=== PATIENT | male | born 1955 | race Caucasian/White ===

== ENCOUNTER 2019-08-08 13:30 | Emergency (ER) | payer MEDICARE, SELFPAY ==
[2019-08-08 13:42] VITALS: BP 189/157; PULSE 101; RESP 18; TEMP 36.6; O2SAT 97; BMI 43.8
--- NOTE | 2019-08-08 14:33 | XRR_ITS ---
PROCEDURE INFORMATION: Exam: XR Chest, 1 View Exam date and time: 08/08/2019 2:53 PM Age: 64 years old Clinical indication: Cough; Prior surgery; Surgery type: Open heart TECHNIQUE: Imaging protocol: XR of the chest Views: 1 view. COMPARISON: CR Chest 1 [place] [id number] 01/09/2019 3:30 PM FINDINGS: Lungs: Unremarkable. No consolidation. Pleural space: Unremarkable. No pleural effusion. No pneumothorax. Heart/Mediastinum: Unremarkable. No cardiomegaly. Bones/joints: Metallic sternotomy wires are in place. No interval changes are seen compared to prior XR/XR chest 1V portable [id number] IMPRESSION: No acute findings. Metallic sternotomy wires in place
[2019-08-08 15:32] LABS: Basophils # 0.1 10^3/uL (0.0-0.1); Eosinophils # 0.2 10^3/uL (0.0-0.8); Eosinophils % 2.1 %; Hematocrit 41.4 % (42.0-52.0); Hemoglobin 13.9 g/dL (11.7-16.6); Lymphocytes # 2.4 10^3/uL (0.8-4.8); Lymphocytes % 21.9 %; Mean Corpuscular HGB Conc 33.6 g/dL (30.0-36.0); Mean Corpuscular Hemoglobin 29.8 pg (28.0-34.0); Mean Corpuscular Volume 88.8 fL (80-94); Mean Platelet Volume 9.8 fL (7.4-10.4); Monocytes # 0.5 10^3/uL (0.2-0.9); Neutrophils # 7.5 10^3/uL (1.8-7.7); Neutrophils % 69.5 %; Nucleated Red Blood Cells % 0 %; Platelet Count 237 10^3/cmm (130-400); Red Blood Count 4.66 10^6/uL (4.1-5.3); Red Cell Distribution Width 14.1 % (12.1-15.1); White Blood Count 10.8 10^3/uL (4.0-10.0)
[2019-08-08 17:45] VITALS: BP 198/103; BP 198/110; PULSE 122; RESP 18; TEMP 36.7; O2SAT 99
--- NOTE | 2019-08-08 17:45 | W.ED.GENADLT ---
HPI - General Adult General: Chief complaint: General Medical Stated complaint: congested Time Seen by Provider: 08/08/19 17:43 History of Present Illness: HPI narrative: Patient is a 64-year-old male comes into the ED with nasal congestion, sinus pain and not feeling well. Patient states that the symptoms started last Tuesday. He denies chest pain, shortness of breath, cough, ear pain, sore throat, abdominal pain, nausea, vomiting, dysuria, hematuria, bladder or bowel symptoms. Patient also states that he's been out of his blood pressure medications for 4 days. He would like to get some of his blood pressure medications refilled today. Review of Systems General: Reports: 10 or more systems reviewed and unremarkable except in HPI and below PFSH ED PFSH: Statuses (acute, chronic, etc) shown below reflect problem list status as previously entered and may not be historically accurate Social History Smoking and tobacco status: never smoked Physical Exam Const: COMMON NORMALS: oriented x3 HENMT: COMMON NORMALS: normocephalic, TM's normal bilaterally and external nose normal HEAD & SCALP: normocephalic FACE & SINUS: sinus tenderness maxillary (Left and right side-left side was more tender) NOSE: external nose normal, mucous membranes and turbinates abnormal erythematous and nasal discharge clear TYMPANIC MEMBRANE: TM's normal bilaterally MOUTH: oral and palatal mucosa normal THROAT: posterior oropharynx normal and uvula midline Neck/C-Spine: COMMON NORMALS: supple GENERAL: Yes normal visual inspection Resp: COMMON NORMALS: normal respiratory effort, no retractions, no use of accessory muscles and clear to auscultation bilaterally AUSCULTATION: clear to auscultation bilaterally Cardio: COMMON NORMALS: regular rate, regular rhythm, S1 normal heart sound, S2 normal heart sound, no gallops, no clicks, no murmurs and peripheral pulses 2+ throughout RATE: regular rate RHYTHM: regular rhythm HEART SOUNDS: S1 normal and S2 normal PERIPHERAL PULSES: pulses 2+ throughout GI: COMMON NORMALS: normal to inspection, nondistended, normoactive bowel sounds, soft to palpation, non-tender and no masses PALPATION: Yes soft : COMMON NORMALS: Yes no CVA tenderness BLADDER/KIDNEY EXAM: Yes no CVA tenderness Back/Pelvis: COMMON NORMALS: no CVA tenderness Extremity: COMMON NORMALS: normal to inspection Neuro: COMMON NORMALS: oriented x3 and moves all extremities Skin: COMMON NORMALS: no rashes or lesions noted GENERAL SKIN EXAM: no rashes or lesions noted Course Vital Signs: Vital signs: Vital Signs Temperature 98.2 F 08/08/19 18:59 Pulse Rate 78 08/08/19 18:59 Respiratory Rate 14 08/08/19 18:59 Blood Pressure 183/132 08/08/19 18:59 Pulse Oximetry 98 08/08/19 18:59 [facility] - General Adult Lab Data: Attestation: I reviewed the patient's lab results. Labs: Lab Results 08/08/19 Range/Units 15:13 WBC 10.8 H (4.0-10.0) 10^3/ uL RBC 4.66 (4.1-5.3) 10^6/u L Hgb 13.9 (11.7-16.6) g/dL Hct 41.4 L (42.0-52.0) % MCV 88.8 (80-94) fL MCH 29.8 (28.0-34.0) pg MCHC 33.6 (30.0-36.0) g/dL RDW 14.1 (12.1-15.1) % Plt Count 237 (130-400) 10^3/c mm MPV 9.8 (7.4-10.4) fL Neut % (Auto) 69.5 % Lymph % (Auto) 21.9 % [place] % (Auto) 5.0 % Eos % (Auto) 2.1 % Baso % (Auto) 1.0 % Neut # (Auto) 7.5 (1.8-7.7) 10^3/u L Lymph # (Auto) 2.4 (0.8-4.8) 10^3/u L [place] # (Auto) 0.5 (0.2-0.9) 10^3/u L Eos # (Auto) 0.2 (0.0-0.8) 10^3/u L Baso # (Auto) 0.1 (0.0-0.1) 10^3/u L Nucleated RBC % (a uto) 0 % Nucleated RBCs # 0.0 /100WBC Imaging Data^: CXR: Attestation: I personally reviewed and interpreted this imaging study as follows: Radiologist's impression: [address] [place] [address] XRay Report Signed Patient: Mandy Davis Unit #: [id number] : 1955 Age/Sex: 64 / M ADM Date: 08/08/19 Loc: ER Room/Bed: Attending Dr: Ordering Provider/Ordering MD: Artie Campa DO Date of Service: 08/08/19 Procedure(s): XR chest 1V portable [id number] Accession Number(s): [id number] Report Number: [id number] PROCEDURE INFORMATION: Exam: XR Chest, 1 View Exam date and time: 08/08/2019 2:53 PM Age: 64 years old Clinical indication: Cough; Prior surgery; Surgery type: Open heart TECHNIQUE: Imaging protocol: XR of the chest Views: 1 view. COMPARISON: CR Chest 1 [place] [id number] 01/09/2019 3:30 PM FINDINGS: Lungs: Unremarkable. No consolidation. Pleural space: Unremarkable. No pleural effusion. No pneumothorax. Heart/Mediastinum: Unremarkable. No cardiomegaly. Bones/joints: Metallic sternotomy wires are in place. No interval changes are seen compared to prior XR/XR chest 1V portable [id number] IMPRESSION: No acute findings. Metallic sternotomy wires in place Dictated By: Vicente Wang Signed By: Vicente Wang Signed Date/Time: 08/08/191517 DD/ 16 Discharge Plan Discharge Patient Disposition: Home, Self-Care Clinical Impression: Medication refill Acute infection of nasal sinus Qualifiers: Sinusitis location: maxillary Recurrence: non-recurrent Qualified Code(s): J01.00 - Acute maxillary sinusitis, unspecified Condition: Stable Prescriptions: New lisinopril-hydrochlorothiazide 20-12.5 mg tablet 1 tab PO DAILY Qty: 20 RF: 0 amoxicillin 500 mg capsule 500 mg PO BID 10 Days Qty: 20 RF: 0 prednisone 20 mg tablet 20 mg PO TID 5 Days Qty: 15 RF: 0 metoprolol tartrate 50 mg tablet 50 mg PO DAILY Qty: 20 RF: 0 Discharge Orders: Discharge Order (Routine); Ordered 08/08/19 Ordered By: Joey Copeland Referrals: Matthew Ray NP [Primary Care Provider] - Ronak Foote DO [Family Provider] - Discharge Diet: Regular Discharge Activity: Resume usual activity Activity Restrictions/Additional Instructions: Follow-up with your primary care doctor in the next 7 days for reevaluation and to get refills on your medications. Will send you home with a prescription for your blood pressure medication. Take full course of antibiotics and steroids as prescribed. Take Tylenol or ibuprofen as needed for fever control. Drink plenty of fluids. Continue using Over the counter decongestants. 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
[2019-08-08 18:59] VITALS: BP 183/132; PULSE 78; RESP 14; TEMP 36.8; O2SAT 98
[2019-08-08] MEDS: hydroCHLOROthiazide 25 mg Tablet 12.5 MG PO (18:59)
[2019-08-08] MEDS: lisinopril 20 mg Tablet PO (18:59)
== END 2019-08-08 19:01 | disposition home or self-care (01) ==
PROVIDERS: Family Medicine; Emergency Provider Physician Assistant; Family Provider Internal Medicine; PCP Nurse Practitioner Family
DX: J01.00 Acute maxillary sinusitis, unspecified (principal); Z76.0 Encounter for issue of repeat prescription
CPT/HCPCS: 36415; 71045; 85025; 96372; 99281; J2930

== ENCOUNTER 2019-08-12 13:09 | Emergency (ER) | payer MEDICARE, SELFPAY ==
[2019-08-12 13:42] VITALS: BP 190/104; PULSE 90; RESP 18; O2SAT 97; BMI 44.6
--- NOTE | 2019-08-12 13:45 | W.ED.URI ---
HPI - URI/Sore Throat General: Chief Complaint: Upper Respiratory Infection Stated Complaint: SINUS PAIN Time Seen by Provider: 08/12/19 13:45 Source: patient Mode of arrival: ambulatory Limitations: no limitations History of Present Illness: HPI Narrative: Patient is a 64-year-old male who presents to ED today with complaints of head pressure, sinus pressure/pain, nasal discharge/congestion, and a cough; symptoms have been present over the past few days; patient was initially seen here and placed on amoxicillin; states he has not been taking his medication as directed (reports not remembering to take most of his medications daily); patient denies running fevers; patient wonders if there might be fluid behind his ars as they also feel full and he is having a little dizziness; patient reports he has a history of hydrocephalus and is concerned maybe this could be causing the dizziness as well; patient ambulated into the ED without difficulty MD elicited complaint: cough, nasal congestion and sinus pain Consistency: constant Description of mucous: clear and yellow Able to tolerate fluids by mouth: Yes Exacerbating factors: nothing Relieving factors: nothing Associated symptoms: Reports cough, ear or mastoid pain ( pressure ), headache(s) ( pressure ), nasal congestion and sinus pain; Deny chills, chest pain, fever(s), nausea or vomiting Treatments prior to arrival: antibiotics Review of Systems Const: Denies: fever, chills, body aches or fatigue Eyes: Denies: change in vision, blurry vision, photophobia, eye discomfort or eye discharge ENMT: Reports: ear pain ( pressure ), nasal discharge, nasal congestion, post nasal drip and facial/sinus pain; Denies: enlarged tonsils, painful swallowing, swelling of lips/tongue, oral sores/lesions, ear discharge or tinnitus Card: Denies: chest pain, palpitations, irregular heart rhythm, edema, syncope or pre-syncope Resp: Reports: productive cough and chest congestion; Denies: shortness of breath, non-productive cough, wheezing, stridor, pain on inspiration or coughing up blood GI: Denies: nausea or vomiting Musc: Denies: neck pain or back pain Skin/Breast: Denies: rash Neuro: Reports: headache ( pressure ) and dizziness; Denies: numbness in extremities, weakness in extremities, changes in sensation, lack of coordination, difficulty walking or frequent falls All/Imm: Denies: facial swelling or seasonal allergies PFSH ED PFSH: Statuses (acute, chronic, etc) shown below reflect problem list status as previously entered and may not be historically accurate Social History Smoking and tobacco status: never smoked Physical Exam Const: COMMON NORMALS: no apparent distress, oriented x3, alert and well nourished NUTRITIONAL APPEARANCE: obese ORIENTATION/CONSCIOUSNESS: Yes oriented to person, Yes oriented to place and Yes oriented to time HENMT: COMMON NORMALS: normocephalic, head/scalp atraumatic, hearing grossly normal bilaterally, external ears normal, EAC's normal, external nose normal, nasal mucous membranes and turbinates normal, moist oral mucous membranes and oropharynx normal HEAD & SCALP: normocephalic and atraumatic FACE & SINUS: sinus tenderness frontal and maxillary NOSE: external nose normal and nasal mucous membranes and turbinates normal EXTERNAL EAR: Yes external ears normal EXTERNAL AUDITORY CANAL: EAC's normal TYMPANIC MEMBRANE: TM abnormal (serous otitis-R) MOUTH: oral and palatal mucosa normal THROAT: posterior oropharynx normal, tonsils normal and uvula midline Eye: COMMON NORMALS: PERRL, EOMs intact bilaterally and conjunctivae normal CONJUNCTIVA: Yes conjunctivae normal PUPIL: Yes PERRL Neck/C-Spine: COMMON NORMALS: full ROM, no lymphadenopathy and no meningeal signs Resp: COMMON NORMALS: normal respiratory effort and clear to auscultation bilaterally AUSCULTATION: clear to auscultation bilaterally Cardio: COMMON NORMALS: regular rate and regular rhythm RATE: regular rate RHYTHM: regular rhythm Neuro: NAT COMA SCALE: document GCS findings Nat coma scale eye opening: Spontaneous Section coma scale verbal response: Orientated Nat coma scale motor response: Obey commands Section coma scale total score: 15 COMMON NORMALS: oriented x3, CN's II-XII intact bilaterally, moves all extremities, no focal motor deficits and no sensory deficits noted SENSORIUM/ORIENTATION: Yes alert, Yes oriented to person, Yes oriented to place and Yes oriented to time MENINGEAL SIGNS: Yes no meningeal signs SPEECH: speech normal GAIT: Yes normal gait Course Vital Signs: Vital signs: Vital Signs Pulse Rate 79 08/12/19 16:12 Respiratory Rate 18 08/12/19 16:12 Blood Pressure 189/114 08/12/19 16:12 Pulse Oximetry 96 08/12/19 16:12 MDM - URI/Sore Throat MDM Narrative: Medical decision making narrative: Patient's history is most consistent with a sinusitis/bronchitis/URI. Recommend he take the amoxicillin given to him at last visit as directed. CXR today again clear. There are no acute changes on his head CT. Recommend he contact primary care physician to schedule follow-up appointment. Imaging Data^: CXR: Radiologist's impression: [place] [address] XRay Report Signed Patient: Mandy Davis Unit #: [id number] : 1955 Age/Sex: 64 / M ADM Date: 08/12/19 Loc: ER Room/Bed: Attending Dr: Ordering Provider/Ordering MD: Cris Norris Date of Service: 08/12/19 Procedure(s): XR chest 1V [id number] Accession Number(s): [id number] Report Number: [id number] PROCEDURE INFORMATION: Exam: XR Chest, 1 View Exam date and time: 08/12/2019 2:22 PM Age: 64 years old Clinical indication: Cough; Prior surgery; Surgery date: 6+ months; Surgery type: Open heart TECHNIQUE: Imaging protocol: XR of the chest Views: 1 view. COMPARISON: CR XR chest 1V portable [id number] 08/08/2019 2:40 PM FINDINGS: Lungs: The lungs are well expanded with no focal consolidation. Pulmonary vascular congestion without overt edema. Pleural space: Unremarkable. No evidence of pleural effusion or pneumothorax. Heart/Mediastinum: Cardiac silhouette remains mild to moderately enlarged. Bones/joints: Median sternotomy wires. XR/XR chest 1V [id number] IMPRESSION: No acute findings. Dictated By: Usman Worthy MD Signed By: Usman Worthy MD Signed Date/Time: 08/12/19 1511 DD/ 1510 CT Head: Radiologist's impression: [address] [address] [address] Scan Report Signed Patient: Mandy Davis Unit #: [id number] : 1955 Age/Sex: 64 / M ADM Date: 08/12/19 Loc: ER Room/Bed: Attending Dr: Ordering Provider/Ordering MD: Cris Norris Date of Service: 08/12/19 Procedure(s): CT head wo con* [id number] Accession Number(s): [id number] Report Number: [id number] PROCEDURE INFORMATION: Exam: CT Head Without Contrast Exam date and time: 08/12/2019 2:03 PM Age: 64 years old Clinical indication: Dizziness; Additional info: Dizzy; HX of hydrocephalus TECHNIQUE: Imaging protocol: Computed tomography of the head without contrast. Total DLP: 833.53 mGy-cm Radiation optimization: All CT scans at this facility use at least one of these dose optimization techniques: automated exposure control; mA and/or kV adjustment per patient size (includes targeted exams where dose is matched to clinical indication); or iterative reconstruction. COMPARISON: CT head wo con* [id number] 09/08/2016 and August 08, 2016 FINDINGS: Brain: No intracranial hemorrhage. Atrophy and mild decreased attenuation of the periventricular white matter is again noted, with additional bilateral scattered subcentimeter chronic basal ganglia lacunar infarcts. Normal odell-white differentiation with no evidence of edema or territorial infarct. Unchanged appearance of asymmetric increased extra-axial CSF density fluid along the right frontal and parietal lobes laterally, as well as along the between the left frontal lobe in the interhemispheric fissure, again with minimal right to left midline shift of up to 4 mm. Also unchanged is similar thin CSF density extra-axial fluid in the right posterior fossa. There is again mild ventriculomegaly in the setting of atrophy without evidence of acute hydrocephalus. Ventricles: See Brain Finding. Bones/joints: No acute fracture. Sinuses: Visualized sinuses are unremarkable. No fluid levels. Mastoid air cells: Visualized mastoid air cells are well aerated. Soft tissues: Unremarkable. CT/CT head wo con* [id number] IMPRESSION: 1. No acute findings. 2. Asymmetric CSF density extra-axial fluid again noted between the right calvarium and frontoparietal lobes, between the left frontal lobe and interhemispheric fissure, and right posterior fossa, without significant change since August 08, 2016. Again this may be secondary to chronic subdural hygromas or asymmetric atrophy. 3. Chronic microvascular ischemic changes. Radiation Dose CTDIVOL = (mGy): DLP = 833.53 (mGy-cm) Dictated By: Usman Worthy MD Signed By: Usman Worthy MD Signed Date/Time: 08/12/19 1521 DD/ 1519 Discharge Plan Discharge Patient Disposition: Home, Self-Care Clinical Impression: Acute infection of nasal sinus Qualifiers: Sinusitis location: maxillary Recurrence: non-recurrent Qualified Code(s): J01.00 - Acute maxillary sinusitis, unspecified Condition: Stable Prescriptions: No Action amoxicillin 500 mg capsule 500 mg PO BID 10 Days Qty: 20 RF: 0 metoprolol tartrate 50 mg tablet 50 mg PO DAILY Qty: 20 RF: 0 atorvastatin 40 mg Tablet 40 mg PO DAILY RF: 0 sertraline 100 mg Tablet 100 mg PO BID RF: 0 Plavix 75 mg Tablet 75 mg PO DAILY RF: 0 metformin 1,000 mg Tablet 1,000 mg PO BID RF: 0 warfarin 5 mg Tablet 5 mg PO DAILY RF: 0 levothyroxine 150 mcg Capsule 150 mcg PO DAILY RF: 0 Combivent Respimat 20-100 mcg/actuation Mist 2 puff INHALATION QID RF: 0 lisinopril-hydrochlorothiazide 20-12.5 mg tablet 2 tab PO DAILY RF: 0 Discharge Orders: Discharge Order (Routine); Ordered 08/12/19 Ordered By: Cris Norris Referrals: Matthew Ray NP [Primary Care Provider] - Ronak Foote DO [Family Provider] - Activity Restrictions/Additional Instructions: Continue antibiotics as directed. Follow up with primary care for continued symptoms. 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
--- NOTE | 2019-08-12 13:59 | CTR_ITS ---
PROCEDURE INFORMATION: Exam: CT Head Without Contrast Exam date and time: 08/12/2019 2:03 PM Age: 64 years old Clinical indication: Dizziness; Additional info: Dizzy; HX of hydrocephalus TECHNIQUE: Imaging protocol: Computed tomography of the head without contrast. Total DLP: 833.53 mGy-cm Radiation optimization: All CT scans at this facility use at least one of these dose optimization techniques: automated exposure control; mA and/or kV adjustment per patient size (includes targeted exams where dose is matched to clinical indication); or iterative reconstruction. COMPARISON: CT head wo con* [id number] 09/08/2016 and August 08, 2016 FINDINGS: Brain: No intracranial hemorrhage. Atrophy and mild decreased attenuation of the periventricular white matter is again noted, with additional bilateral scattered subcentimeter chronic basal ganglia lacunar infarcts. Normal odell-white differentiation with no evidence of edema or territorial infarct. Unchanged appearance of asymmetric increased extra-axial CSF density fluid along the right frontal and parietal lobes laterally, as well as along the between the left frontal lobe in the interhemispheric fissure, again with minimal right to left midline shift of up to 4 mm. Also unchanged is similar thin CSF density extra-axial fluid in the right posterior fossa. There is again mild ventriculomegaly in the setting of atrophy without evidence of acute hydrocephalus. Ventricles: See Brain Finding. Bones/joints: No acute fracture. Sinuses: Visualized sinuses are unremarkable. No fluid levels. Mastoid air cells: Visualized mastoid air cells are well aerated. Soft tissues: Unremarkable. CT/CT head wo con* [id number] IMPRESSION: 1. No acute findings. 2. Asymmetric CSF density extra-axial fluid again noted between the right calvarium and frontoparietal lobes, between the left frontal lobe and interhemispheric fissure, and right posterior fossa, without significant change since August 08, 2016. Again this may be secondary to chronic subdural hygromas or asymmetric atrophy. 3. Chronic microvascular ischemic changes. Radiation Dose CTDIVOL = (mGy): DLP = 833.53 (mGy-cm)
--- NOTE | 2019-08-12 13:59 | XRR_ITS ---
PROCEDURE INFORMATION: Exam: XR Chest, 1 View Exam date and time: 08/12/2019 2:22 PM Age: 64 years old Clinical indication: Cough; Prior surgery; Surgery date: 6+ months; Surgery type: Open heart TECHNIQUE: Imaging protocol: XR of the chest Views: 1 view. COMPARISON: CR XR chest 1V portable [id number] 08/08/2019 2:40 PM FINDINGS: Lungs: The lungs are well expanded with no focal consolidation. Pulmonary vascular congestion without overt edema. Pleural space: Unremarkable. No evidence of pleural effusion or pneumothorax. Heart/Mediastinum: Cardiac silhouette remains mild to moderately enlarged. Bones/joints: Median sternotomy wires. XR/XR chest 1V [id number] IMPRESSION: No acute findings.
[2019-08-12 16:12] VITALS: BP 189/114; PULSE 79; RESP 18; O2SAT 96
== END 2019-08-12 16:03 | disposition home or self-care (01) ==
PROVIDERS: Emergency Provider Physician Assistant; Family Provider Internal Medicine; PCP Nurse Practitioner Family
DX: J01.00 Acute maxillary sinusitis, unspecified (principal); Z79.01 Long term (current) use of anticoagulants; Z79.02 Long term (current) use of antithrombotics/antiplatelets; Z79.84 Long term (current) use of oral hypoglycemic drugs
CPT/HCPCS: 70450; 71045; 99281

== ENCOUNTER 2019-09-09 14:03 | Inpatient (IN) | payer MEDICARE, SELFPAY ==
[2019-09-09] VITALS (68 sets, daily range): BP systolic 108–183; BP diastolic 72–129; PULSE 87–141; RESP 12–41; TEMP 36.5–37.6; O2SAT 94–100; BMI 43.8
--- NOTE | 2019-09-09 14:25 | ED_ITS ---
Entered by Maryam Salcedo, acting as scribe for Rex Nj MD, [facility] [place] - General Adult General: Chief complaint: General Medical Stated complaint: FREQUENT FALLS Time Seen by Provider: 09/09/19 14:23 Source: patient Mode of arrival: EMS Limitations: no limitations History of Present Illness: HPI narrative: 64 yo Male presents to ED with complaint of frequent falls and feeling weird. Pt states that he has been feeling really weird. Pt states that he doesn't know when it started. Pt states that he felt dizzy and light headed a few times. Pt denies chest pain. Pt states that he has fallen twice today. Pt states that he doesn't know why he fell. Pt states that he felt really light headed and then it goes away. Pt denies head injury or loss of consciousness. Pt states that he is on blood thinners. Pt states that he has a-fib. Pt states he does not feel like his heart is racing. Pt states that he does have COPD but doesn't smoke and is not on oxygen at home. Pt has a small skin tear on his right forearm. complaint: light headed, frequent falls Onset (ago): hour(s) Pain Consistency: intermittent Relieving factors: none Exacerbating factors: none Associated symptoms: Deny chest pain, dyspnea, headache(s), nausea, rash, palpitations or vomiting Review of Systems General: Reports: 10 or more systems reviewed and unremarkable except in HPI and below Const: Denies: fever, chills or body aches Eyes: Denies: change in vision or blurry vision ENMT: Denies: throat pain, enlarged tonsils, painful swallowing, hoarseness, mouth pain or swelling of lips/tongue Card: Reports: lightheadedness; Denies: chest pain, palpitations, irregular heart rhythm, edema or swelling of feet/ankles Resp: Denies: shortness of breath, productive cough or non-productive cough GI: Denies: abdominal pain, nausea or vomiting : Denies: flank pain, painful urination, urinary frequency, urinary urgency or urinary hesitancy Musc: Denies: neck pain, back pain or extremity swelling Skin/Breast: Denies: rash, itching or redness Neuro: Denies: headache, numbness in extremities or weakness in extremities Endo: Denies: excessive urination, excessive thirst or tired all the time PFSH ED PFSH: Social History Smoking and tobacco status: never smoked Physical Exam Const: COMMON NORMALS: no apparent distress, average body habitus, oriented x3, no limitations, healthy appearing, alert and well nourished HENMT: COMMON NORMALS: normocephalic, head/scalp atraumatic and moist oral mucous membranes HEAD & SCALP: normocephalic and atraumatic Eye: COMMON NORMALS: PERRL, EOMs intact bilaterally, conjunctivae normal and no scleral icterus CONJUNCTIVA: Yes conjunctivae normal PUPIL: Yes PERRL Neck/C-Spine: COMMON NORMALS: full ROM, supple, no meningeal signs, no JVD and no carotid bruits Chest: COMMONS NORMALS: inspection of chest normal and palpation of chest normal Resp: COMMON NORMALS: normal respiratory effort, no retractions, no use of accessory muscles and percussion normal AUSCULTATION: rales bilateral 1/[address] up PERCUSSION: percussion normal Cardio: COMMON NORMALS: no JVD, regular rate, regular rhythm, S1 normal heart sound, S2 normal heart sound, no gallops, no clicks, no murmurs, no rub and peripheral pulses 2+ throughout RATE: regular rate and tachycardic RHYTHM: regular rhythm and abnormal rhythm irregularly irregular HEART SOUNDS: S1 normal and S2 normal PERIPHERAL PULSES: pulses 2+ throughout GI: COMMON NORMALS: normal to inspection, nondistended, normoactive bowel sounds, soft to palpation, non-tender, no hepatosplenomegaly, no masses and no bruits PALPATION: Yes soft and Yes no hepatosplenomegaly : COMMON NORMALS: Yes no CVA tenderness BLADDER/KIDNEY EXAM: Yes no CVA tenderness Back/Pelvis: COMMON NORMALS: no CVA tenderness Extremity: COMMON NORMALS: normal to inspection, full ROM, normal capillary refill, no calf tenderness and no pedal edema Neuro: COMMON NORMALS: oriented x3 SENSORIUM/ORIENTATION: Yes alert MENINGEAL SIGNS: Yes no meningeal signs Skin: COMMON NORMALS: no rashes or lesions noted, no wounds, skin turgor normal, no jaundice, no petechiae and no mottling GENERAL SKIN EXAM: no r ashes or lesions noted and turgor normal Course Consultations: Consultation #1: Dr. St, hospitalist. He kindly accepted patient to his service. Time: 18:15 Vital Signs: Vital signs: Vital Signs Temperature 99.6 F 09/09/19 19:36 Pulse Rate 112 H 09/09/19 20:41 Respiratory Rate 18 09/09/19 20:00 Blood Pressure 138/83 09/09/19 20:07 Pulse Oximetry 99 09/09/19 20:41 MDM - General Adult MDM Narrative: Medical decision making narrative: Patient with clinical features of atrial fibrillation with rapid ventricular reading. Patient has a prior history of A. fib, he is on warfarin but is subtherapeutic today. He presented because of falls and dizziness. Evaluation showed A. fib requiring multiple doses of Cardizem and eventually a Cardizem drip. He is admitted to the cardiac stepdown unit for further evaluation and managem ent Differential Diagnosis: Differential Diagnosis: Posterior circulation CVA, A. fib with RVR, other neurologic symptoms, ACS. Medical Records: Attestation: I reviewed the patient's medical records. Lab Data: Attestation: I reviewed the patient's lab results. Labs: Lab Results 09/09/19 09/09/19 09/09/19 Range/Units 14:56 14:56 14:56 WBC 10.8 H (4.0-10.0) 10^3/ uL RBC 4.01 L (4.1-5.3) 10^6/u L Hgb 11.5 L (11.7-16.6) g/dL Hct 34.4 L (42.0-52.0) % MCV 85.8 (80-94) fL MCH 28.7 (28.0-34.0) pg MCHC 33.4 (30.0-36.0) g/dL RDW 13.1 (12.1-15.1) % Plt Count 302 (130-400) 10^3/c mm MPV 9.6 (7.4-10.4) fL Neut % (Auto) 82.8 % Lymph % (Auto) 6.1 % [place] % (Auto) 9.3 % Eos % (Auto) 0.3 % Baso % (Auto) 0.8 % Neut # (Auto) 8.9 H (1.8-7.7) 10^3/u L Lymph # (Auto) 0.7 L (0.8-4.8) 10^3/u L [place] # (Auto) 1.0 H (0.2-0.9) 10^3/u L Eos # (Auto) 0.0 (0.0-0.8) 10^3/u L Baso # (Auto) 0.1 (0.0-0.1) 10^3/u L Nucleated RBC % (a uto) 0 % Nucleated RBCs # 0.0 /100WBC PT 15.90 H (10.5-13.3) SECO NDS INR 1.23 H (0.8-1.2) Sodium 130 L (136-145) mmol/L Potassium 3.6 (3.5-5.1) mmol/L Chloride 90 L (98-107) mmol/L Carbon Dioxide 23 (22-29) mmol/L Anion Gap 20.6 H (5-19) BUN 8 (8-23) mg/dL Creatinine 1.1 (0.7-1.2) mg/dL GFR Calculation 67.6 L (90-130) mL/min Glucose 270 H (65-115) mg/dL Calcium 9.2 (8.5-10.5) mg/dL Total Bilirubin 0.8 (0.15-1.2) mg/dL AST 31 (0-40) U/L ALT 16 (0-41) U/L Alkaline Phosphata se 148 H (40-130) IU/L Troponin T Baselin e (0-15) ng/mL Troponin T 120 Min [place] (0-15) ng/mL Delta Troponin T (0-10) ABS# NT-Pro-B Natriuret Pep 3814 H (0-125) pg/mL Total Protein 7.5 (6.6-8.7) g/dL Albumin 4.2 (3.5-5.2) g/dL Globulin 3.3 (1.3-4.6) g/dL Lipase 10 L (13-60) U/L 09/09/19 09/09/19 Range/Units 14:56 16:54 WBC (4.0-10.0) 10^3/ uL RBC (4.1-5.3) 10^6/u L Hgb (11.7-16.6) g/dL Hct (42.0-52.0) % MCV (80-94) fL MCH (28.0-34.0) pg MCHC (30.0-36.0) g/dL RDW (12.1-15.1) % Plt Count (130-400) 10^3/c mm MPV (7.4-10.4) fL Neut % (Auto) % Lymph % (Auto) % [place] % (Auto) % Eos % (Auto) % Baso % (Auto) % Neut # (Auto) (1.8-7.7) 10^3/u L Lymph # (Auto) (0.8-4.8) 10^3/u L [place] # (Auto) (0.2-0.9) 10^3/u L Eos # (Auto) (0.0-0.8) 10^3/u L Baso # (Auto) (0.0-0.1) 10^3/u L Nucleated RBC % (a uto) % Nucleated RBCs # /100WBC PT (10.5-13.3) SECO NDS INR (0.8-1.2) Sodium (136-145) mmol/L Potassium (3.5-5.1) mmol/L Chloride (98-107) mmol/L Carbon Dioxide (22-29) mmol/L Anion Gap (5-19) BUN (8-23) mg/dL Creatinine (0.7-1.2) mg/dL GFR Calculation (90-130) mL/min Glucose (65-115) mg/dL Calcium (8.5-10.5) mg/dL Total Bilirubin (0.15-1.2) mg/dL AST (0-40) U/L ALT (0-41) U/L Alkaline Phosphata se (40-130) IU/L Troponin T Baselin e 47 H (0-15) ng/mL Troponin T 120 Min [place] 49.07 H (0-15) ng/mL Delta Troponin T 2.07 (0-10) ABS# NT-Pro-B Natriuret Pep (0-125) pg/mL Total Protein (6.6-8.7) g/dL Albumin (3.5-5.2) g/dL Globulin (1.3-4.6) g/dL Lipase (13-60) U/L EKG Data^: EKG 1: Attestation: I personally reviewed and interpreted this EKG as follows: EKG interpretation date: 09/09/19 EKG interpretation time: 14:39 Prior EKG tracings: not available for review Interpretation: Atrial fibrillation with rapid ventricular rate. Heart rate 141 bpm Left axis deviation. Q waves in 1 and aVL Computer generated interpretation: Head CT 09/09/19 18:16 IMPRESSION: 1. Asymmetric extra-axial CSF density fluid along the right frontal parietal lobes, left side of the interhemispheric fissure, and right posterior fossa are unchanged from the prior exam. Differential includes subdural hygromas versus asymmetric atrophy. 2. There are senescent changes of the brain as described above. No evidence for large acute ischemic infarction or acute intracranial injury. Radiation Dose CTDIVOL = (mGy): DLP = 1516.1 (mGy-cm) EKG 2: Attestation: I personally reviewed and interpreted this EKG as follows: EKG interpretation date: 09/09/19 EKG interpretation time: 16:16 Prior EKG tracings: available for review Interpretation: Other than heart rate of 108 now unchanged from earlier Computer generated interpretation: Head CT 09/09/19 18:16 IMPRESSION: 1. Asymmetric extra-axial CSF density fluid along the right frontal parietal lobes, left side of the interhemispheric fissure, and right posterior fossa are unchanged from the prior exam. Differential includes subdural hygromas versus asymmetric atrophy. 2. There are senescent changes of the brain as described above. No evidence for large acute ischemic infarction or acute intracranial injury. Radiation Dose CTDIVOL = (mGy): DLP = 1516.1 (mGy-cm) Discharge Plan Discharge Patient Disposition: Admitted As Inpatient Admit Provider: Aguila [address] Clinical Impression: Atrial fibrillation with RVR, Dizziness, Repeated falls Condition: Stable Interventions: ED Discharge Assessment Last Done: 09/09/19 19:21 Discharge Date/Time: 09/09/19 19:22 Coding Level of Care Code ED Press Clipper for Chg Fwd Exam Comprehensive The documentation recorded by the Matias harrington Carmen, accurately reflects the service I personally performed and the decisions made by me, Rex Nj MD, [facility] [place] Sep 09, 2019 14:03
--- NOTE | 2019-09-09 14:38 | ECG_ITS ---
Measurements Intervals [place] Rate: 141 P: [place]: 0 QRS: -43 QRSD: 120 T: 87 QT: 328 QTc: 503 ATRIAL FIBRILLATION WITH RAPID VENTRICULAR RESPONSE LEFT AXIS DEVIATION [QRS AXIS < -30] POSSIBLE LATERAL MYOCARDIAL INFARCTION , OF INDETERMINATE AGE Compared to ECG 09/04/2017 04:20:19 Myocardial infarct finding now present Atrial flutter no longer present Aberrant conduction of supraventricular beat(s) no longer present Incomplete right bundle-branch block no longer present T-wave abnormality no longer present Electronically Signed On 09-10-2019 15:34:15 METER READER INSPECTOR by Rubia Hull M.D. [id number]
[2019-09-09 15:08] LABS: Basophils # 0.1 10^3/uL (0.0-0.1); Basophils % 0.8 %; Eosinophils % 0.3 %; Hematocrit 34.4 % (42.0-52.0); Hemoglobin 11.5 g/dL (11.7-16.6); Lymphocytes # 0.7 10^3/uL (0.8-4.8); Lymphocytes % 6.1 %; Mean Corpuscular HGB Conc 33.4 g/dL (30.0-36.0); Mean Corpuscular Hemoglobin 28.7 pg (28.0-34.0); Mean Corpuscular Volume 85.8 fL (80-94); Mean Platelet Volume 9.6 fL (7.4-10.4); Monocytes % 9.3 %; Neutrophils # 8.9 10^3/uL (1.8-7.7); Neutrophils % 82.8 %; Nucleated Red Blood Cells % 0 %; Platelet Count 302 10^3/cmm (130-400); Red Blood Count 4.01 10^6/uL (4.1-5.3); Red Cell Distribution Width 13.1 % (12.1-15.1); White Blood Count 10.8 10^3/uL (4.0-10.0)
[2019-09-09 15:18] LABS: INR 1.23 (0.8-1.2)
[2019-09-09 15:26] LABS: Troponin(5th) Baseline 47 ng/mL (0-15)
[2019-09-09 15:33] LABS: Alanine Aminotransferase 16 U/L (0-41); Albumin Level 4.2 g/dL (3.5-5.2); Alkaline Phosphatase 148 IU/L (40-130); Anion Gap 20.6 (5-19); Aspartate Amino Transferase 31 U/L (0-40); Blood Urea Nitrogen 8 mg/dL (8-23); Calcium 9.2 mg/dL (8.5-10.5); Carbon Dioxide 23 mmol/L (22-29); Chloride 90 mmol/L (98-107); Globulin 3.3 g/dL (1.3-4.6); Glomerular Filtration Rate 67.6 mL/min (90-130); Glucose 270 mg/dL (65-115); Lipase 10 U/L (13-60); NT Pro B Type Natriuretic Pept 3814 pg/mL (0-125); Potassium 3.6 mmol/L (3.5-5.1); Sodium 130 mmol/L (136-145); Total Bilirubin 0.8 mg/dL (0.15-1.2); Total Protein 7.5 g/dL (6.6-8.7)
--- NOTE | 2019-09-09 16:38 | ECG_ITS ---
Measurements Intervals [place] Rate: 108 P: [place]: 0 QRS: -37 QRSD: 118 T: 76 QT: 375 QTc: 505 ATRIAL FIBRILLATION WITH RAPID VENTRICULAR RESPONSE LEFT AXIS DEVIATION [QRS AXIS < -30] POSSIBLE LATERAL MYOCARDIAL INFARCTION , OF INDETERMINATE AGE Compared to ECG 09/04/2017 04:20:19 Myocardial infarct finding now present Atrial flutter no longer present Aberrant conduction of supraventricular beat(s) no longer present Incomplete right bundle-branch block no longer present T-wave abnormality no longer present Electronically Signed On 09-10-2019 15:41:00 INSPECTOR TESTER SORTER by Rubia Hull M.D. [id number]
[2019-09-09 17:24] LABS: Troponin 5 2HR 49.07 ng/mL (0-15); Troponin 5 2HR Delta 2.07 ABS# (0-10)
[2019-09-09] MEDS: morphine 4 mg/mL SDV 1 mL IVP (17:28)
--- NOTE | 2019-09-09 17:35 | XR_ITS ---
WS: [id number] CHEST XRAY TECHNIQUE: Portable chest. CLINICAL INFORMATION: shortness of breath COMPARISON: August 12, 2019 FINDINGS: Heart: Cardiomegaly. Sternotomy. Lungs: Lungs are clear. No consolidation or pleural effusion. Bones: Normal visualized bony structures. XR/XR chest 1V portable [id number] IMPRESSION: Stable cardiomegaly. No focal pneumonia.
--- NOTE | 2019-09-09 18:16 | CTR_ITS ---
PROCEDURE INFORMATION: Exam: CT Head Without Contrast Exam date and time: 09/09/2019 6:43 PM Age: 64 years old Clinical indication: Dizziness; Patient HX: PT scanned 2x due to PT motion; PT states 3 recent falls at home, dizzy; Additional info: Dizziness, afib with rvr, subtherapeutic TECHNIQUE: Imaging protocol: Computed tomography of the head without contrast. Total DLP: 1516.1 mGy-cm Radiation optimization: All CT scans at this facility use at least one of these dose optimization techniques: automated exposure control; mA and/or kV adjustment per patient size (includes targeted exams where dose is matched to clinical indication); or iterative reconstruction. COMPARISON: CT head wo con* [id number] 08/12/2019 2:25 PM FINDINGS: Brain: Asymmetric extra-axial CSF density fluid along the right frontal parietal lobes, left side of the interhemispheric fissure, and right posterior fossa are unchanged from the prior exam. There is diffuse cerebral atrophy present, consistent with this patient's age. Periventricular and subcortical white matter low densities are present which at this age likely represent microvascular ischemic change. No evidence for large acute ischemic infarction. Ventricles: Normal. No ventriculomegaly. Bones/joints: Unremarkable. No acute fracture. Sinuses: Visualized sinuses are unremarkable. No fluid levels. Mastoid air cells: Visualized mastoid air cells are well aerated. Soft tissues: Unremarkable. CT/CT head wo con* [id number] IMPRESSION: 1. Asymmetric extra-axial CSF density fluid along the right frontal parietal lobes, left side of the interhemispheric fissure, and right posterior fossa are unchanged from the prior exam. Differential includes subdural hygromas versus asymmetric atrophy. 2. There are senescent changes of the brain as described above. No evidence for large acute ischemic infarction or acute intracranial injury. Radiation Dose CTDIVOL = (mGy): DLP = 1516.1 (mGy-cm)
--- NOTE | 2019-09-09 20:38 | ECG_ITS ---
Measurements Intervals [place] Rate: 112 P: [place]: 0 QRS: -53 QRSD: 112 T: 52 QT: 372 QTc: 509 ATRIAL FIBRILLATION WITH RAPID VENTRICULAR RESPONSE INCOMPLETE RIGHT BUNDLE BRANCH BLOCK LEFT ANTERIOR FASCICULAR BLOCK NONSPECIFIC ST & T-WAVE ABNORMALITY Compared to ECG 09/04/2017 04:20:19 Left anterior fascicular block now present Atrial flutter no longer present Aberrant conduction of supraventricular beat(s) no longer present Left-axis deviation no longer present T-wave abnormality still present Electronically Signed On 09-10-2019 15:39:05 COMMISSARY STEWARD by Rubia Hull M.D. [id number]
[2019-09-09 20:57] LABS: Glucose Point of Care 209 mg/dL (70-110)
[2019-09-09 21:16] LABS: Troponin 5 6HR 55.04 ng/mL (0-15); Troponin 5 6HR Delta 8.04 ng/L (0-12)
[2019-09-10] VITALS (11 sets, daily range): BP systolic 101–145; BP diastolic 53–77; PULSE 67–87; RESP 18–20; TEMP 36.6–37.9; O2SAT 94–100
--- NOTE | 2019-09-10 00:35 | PM.HP ---
Providers/Chief Complaint Admitting Physician: Serene Pascual MD Primary Care Provider: Matthew aRy NP Chief Complaint: AFIB W RVR; FALLS History of Present Illness Mandy Davis is a 64 year old male with a past medical history of hypertension, obesity, hypercholesterolemia, coronary artery disease status post CABG in 2012, atrial fibrillation on anticoagulation with warfarin, hypothyroidism, diabetes, CKD stage II, COPD, stable subdural hygroma dating back to at least 2016. Limited history is available from the patient as he is not very forthcoming with information. I do not know if he has some underlying baseline neurocognitive deficits or memory impairment. Attempt was made to reach his twice during the course of the night however the number listed is not accepting any phone calls at this present time. Per history that is available right now patient is a 64-year-old male with a history as noted above who was brought to the ER complaining of a generalized feeling of being unwell, feeling lightheaded and having sustained 2 falls at home with an elbow abrasion. Additionally he has presented to the ED several times since July complaining of not feeling well and being diagnosed with acute sinusitis. Today he was noted to be in A. fib with RVR with a heart rate between 140 to 160 bpm. He received some Cardizem pushes, and has now been placed on a Cardizem drip. Currently heart rate is well controlled at 87 bpm. His blood pressure has remained stable. Though he was afebrile at admission later on in the CSU his T-max is 100.2 Fahrenheit. He denies any history of having fevers at home. He tells me that he has not been taking his medications over the past several days as he has run out of prescriptions. He is answering most questions, however he is slow to respond and does not seem to recall any details. CT of his head shows subdural hygroma which is noted to be chronic at least since 2017. Review of records from July 2016 shows that he had presented to the ED complaining of nonspecific chest discomfort. Head CT CT at that time had revealed this said hygroma and he was transferred emergently to [facility] for neurosurgical evaluation. There was a midline shift noted at that time. He does not give me any history of traumatic subdural hematoma preceding the discovery of this finding. On asking him specifically regarding this finding, he states this has been present for several years, though he is unable to give me a timeline at this present time. He is unable to tell me who is following this finding. Review of Systems General: Reports: 10 or more systems reviewed and unremarkable except in HPI and below Const: Denies: fever, chills or body aches Eyes: Denies: change in vision, blurry vision or photophobia ENMT: Denies: throat pain, enlarged tonsils, painful swallowing, hoarseness or nasal congestion Card: Reports: lightheadedness; Denies: chest pain, palpitations, irregular heart rhythm, edema, swelling of feet/ankles, pre-syncope, shortness of breath on exertion or shortness of breath when lying down Resp: Denies: shortness of breath, productive cough, non-productive cough, wheezing, stridor, pain on inspiration, change in phlegm color, coughing up blood or chest congestion GI: Denies: abdominal pain, nausea, vomiting, vomiting blood, coffee grounds in vomit, difficulty swallowing, heartburn/indigestion, diarrhea, constipation, cramping, change in stool character, blood in stool or black tarry stool : Denies: flank pain, painful urination, urinary frequency, urinary urgency, urinary hesitancy or blood in urine Musc: Denies: neck pain, back pain, extremity pain, joint swelling, joint warmth or deformity Neuro: Denies: headache, numbness in extremities, weakness in extremities, changes in sensation, difficulty walking, frequent falls, dizziness, vertigo, behavioral changes, slurred speech or seizure-like activity Psych: Denies: anxiety, depression, suicidal ideation or homicidal ideation Endo: Denies: excessive urination, excessive thirst, tired all the time, cold intolerance or hot flashes Dean/Lymph: Denies: easy bruising or easy bleeding Medications/Allergies Allergies Allergy/AdvReac Type Severity Reaction Status Date / Time Sulfa (Sulfonamide Allergy Unknown Verified 08/08/19 13:48 Antibiotics) PFSH Acute PFSH: Medical History COPD (chronic obstructive pulmonary disease) Hyperlipidemia Hypertension Hypothyroidism Obesity Subdural hygroma Surgical History (Updated 09/10/19 @ 02:29 by Serene Pascual MD) Hx of CABG Social History Smoking and tobacco status: never smoked Vitals/I&O/Wt Last Vital Signs Temp 99.6 F 09/09/19 19:36 Pulse 87 09/10/19 00:00 Resp 18 09/10/19 00:00 BP 105/73 09/10/19 00:00 Pulse Ox 99 09/09/19 20:41 Weight last 48 hrs Weight 127.006 kg Physical Exam Narrative: EXAM NARRATIVE: GEN: Awake, alert, asleep when first seen, however wakes up easily to calling name. He is correctly able to tell me his name,, age and current location. CVS: S1S2 N RS: CTA B/L all areas Abd: Soft, nt/nd , bs+ ENTRY MANAGER: He is awake alert and oriented. However he does appear to have some neurocognitive dysfunction with gaps in memory. He is very weak about his history, does not recall details of most of his medical problems, intermittently speaks out of context to the question being asked. He is able to move all extremities while lying in bed. Data : 09/09/19 14:56 09/09/19 14:56 A&P Assessment and plan (1) Atrial fibrillation with RVR: Status: Acute Code(s): I48.91 - Unspecified atrial fibrillation (2) Repeated falls: Status: Acute Code(s): R29.6 - Repeated falls (3) Dizziness: Status: Acute Code(s): R42 - Dizziness and giddiness (4) Subdural hygroma: Status: Acute Code(s): G96.0 - Cerebrospinal fluid leak (5) Hypothyroidism: Status: Acute Code(s): E03.9 - Hypothyroidism, unspecified (6) COPD (chronic obstructive pulmonary disease): Status: Acute Code(s): J44.9 - Chronic obstructive pulmonary disease, unspecified (7) Hypertension: Status: Acute Code(s): I10 - Essential (primary) hypertension Additional A&P Information Admit to CSU in view of A. fib with RVR which is his presenting complaint. #1 A. fib with RVR Patient was given Cardizem pushes in the ED and is currently on a Cardizem drip with heart rate now controlled at 87 bpm. His blood pressure has been stable during course of admission. He states having missed several of his home medications over the past few days. He tells me this was only over the last 3 to 4 days, however Er notes from July also state he has been missing his medications. He is unable to tell me exactly why he missed his medications but says it may be because he ran out. Patient is on anticoagulation with Coumadin. Currently INR is subtherapeutic which may be related to him not taking his medications. For now I will place the Coumadin on hold. See details under point #2. Continue metoprolol 50 mg p.o. daily which is supposed to be his home dosing. #2 subdural hygroma as noted on CT of the head, reportedly stable since 2017. Patient is unable to tell me the chronicity of this above hygroma, however review of records from ER from 2016 showed that he needed to be emergently transferred to [facility] once this was discovered. On his ED visits in July this year, he had mentioned having hydrocephalus. There is no shunt currently noted on CT head. He is unable to tell me if he ever had one in the past. He is also unable to tell me at this time who has been following him for this finding. He is unable to tell me if this was a posttraumatic finding from subdural hematoma or has been a spontaneous hygroma. Unable to reach his for any corroborative history taking. At the time of my evaluation, he appears to have some neurocognitive impairment with memory disturbances, however I am unable to ascertain if this is his baseline or more related to the fact that it is late at night and he has just been woken from sleep. Additionally he has had 4 mg of morphine in the ED which could make it appeared this way. Reassessment tomorrow morning may be a better indicator. Will place Coumadin on hold for now given that he has had recurrent falls at home and unclear cause of the above hygroma (?post traumatic after SDH would be my specific concern). Has been complaining of increased sinus and ear pressure per review of recent ER visit notes, wondering if hydrocephalus may be additionally contributing. #3. history of CAD: Continue Plavix, atorvastatin, lisinopril #4 hypertension: Blood pressure currently well controlled #5 diabetes mellitus: Metformin currently on hold. Replaced with insulin sliding scale low-dose. #6. Hypothyroidism: Continue levothyroxine 150 p.o. daily. Check TSH. #7 COPD, not currently exacerbated. DVT prophylaxis: Lovenox 30 mg while Coumadin is on hold. Full code Attestations Medical Necessity Statement*: Anticipate greater than 2 midnight admission for management of A. fib with RVR Coding Level of Care Code Acute Adjunct Teacher for Chg Fwd Diagnoses Atrial fibrillation with RVR I48.91 Repeated falls R29.6 Dizziness R42 Subdural hygroma G96.0 Hypothyroidism E03.9 COPD (chronic obstructive pulmonary disease) J44.9 Hypertension I10
[2019-09-10] MEDS: FUROsemide 10 mg/mL SDV 2mL 20 MG IVP (01:30)
[2019-09-10 03:14] LABS: Add Urine Culture? No; Add Urine Microscopic? YES; Bacteria Urine 1+; Bilirubin Urine Neg (NEGATIVE); Blood Urine 3+ (Negative); Glucose Urine UA Norm (Normal); Ketones Urine Negative (Negative); Leukocyte Esterase Urine Negative (Negative); Mucus Urine 2+; Nitrate Urine Negative (Negative); Protein Urine 3+ (Negative); RBC Urine 0-4 /hpf (0-2); Specific Gravity, Urine 1.015 (1.005-1.030); Squamous Epithelial Cell Urine 0-4 (0-5); Urine Appearance Clear (CLEAR); Urine Color Yellow (Yellow); Urobilinogen Urine Norm (Negative); WBC Urine RARE /hpf (0-5); pH Urine 5 (5-7)
[2019-09-10] MEDS: acetaminophen 325 mg Tablet 650 MG PO ×3 (03:18→15:09)
--- NOTE | 2019-09-10 04:50 | PC.NURSE ---
Patient current heart rate mid 70s to mid 80s. Stopped cardizem
[2019-09-10 05:11] LABS: Basophils # 0.1 10^3/uL (0.0-0.1); Basophils % 1.2 %; Eosinophils % 0.3 %; Hemoglobin 10.9 g/dL (11.7-16.6); Lymphocytes % 15.4 %; Mean Corpuscular Hemoglobin 29.9 pg (28.0-34.0); Mean Corpuscular Volume 90.4 fL (80-94); Mean Platelet Volume 10.2 fL (7.4-10.4); Monocytes % 15.9 %; Neutrophils # 4.3 10^3/uL (1.8-7.7); Neutrophils % 66.6 %; Nucleated Red Blood Cells % 0 %; Platelet Count 284 10^3/cmm (130-400); Red Blood Count 3.65 10^6/uL (4.1-5.3); Red Cell Distribution Width 13.4 % (12.1-15.1); White Blood Count 6.4 10^3/uL (4.0-10.0)
[2019-09-10 05:20] LABS: Anion Gap 16.4 (5-19); Blood Urea Nitrogen 10 mg/dL (8-23); Calcium 8.8 mg/dL (8.5-10.5); Carbon Dioxide 25 mmol/L (22-29); Chloride 96 mmol/L (98-107); Glomerular Filtration Rate 61.1 mL/min (90-130); Glucose 199 mg/dL (65-115); Osmolality Calculated 280 mOsm/kg (285-295); Potassium 3.4 mmol/L (3.5-5.1); Sodium 134 mmol/L (136-145)
[2019-09-10 05:21] LABS: INR 1.21 (0.8-1.2)
[2019-09-10 05:26] LABS: Estmated Average Glucose 203; Hemoglobin A1C 8.7 % (4.0-6.0)
[2019-09-10 06:17] LABS: Glucose Point of Care 210 mg/dL (70-110)
--- NOTE | 2019-09-10 07:00 | XR_ITS ---
WS: [id number] PROCEDURE: XR chest 2V* [id number] CLINICAL INFORMATION: pneumonia COMPARISON: September 09, 2019 FINDINGS: Heart: Normal cardiac silhouette. Lungs: Lungs are clear. No consolidation or pleural fluid. Bones: Normal visualized bony structures. XR/XR chest 2V* [id number] IMPRESSION: Stable cardiomegaly. No focal pneumonia.
[2019-09-10] MEDS: lisinopril 20 mg Tablet 40 MG PO (09:08)
[2019-09-10] MEDS: metoprolol tartrate 50 mg Tablet PO (09:08)
[2019-09-10] MEDS: atorvastatin 40 mg Tablet PO (09:09)
[2019-09-10] MEDS: clopidogrel 75 mg Tablet PO (09:09)
[2019-09-10] MEDS: hydroCHLOROthiazide 25 mg Tablet PO (09:09)
[2019-09-10] MEDS: sertraline 100 mg Tablet PO ×2 (09:09→17:36)
[2019-09-10] MEDS: ipratropium-albuterol 3 mL Neb INHALATION (09:38)
[2019-09-10 12:25] LABS: Glucose Point of Care 231 mg/dL (70-110)
--- NOTE | 2019-09-10 13:35 | PM.PN ---
Subjective Subjective: Interval history: Chart reviewed, has been weaned off cardizem drip. Hemodynamically stable. Afebrile since noted Tmax-100.2 F around midnight. Urine output of 200 mL. Patient seen and examined, explains feeling unwell over the past few days due to sinus infection and persistent cough, treated with course of amoxicillin per ED note on 08/12. Has been quite weak and had trouble ambulating since then. Was independent prior to this. 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 He feels well currently and is alert, oriented x 3. Speech is clear though he does respond to questions slowly, appropriately which seems to be his baseline. Was able to get up and ambulate with walker during PT session. Ran out of his meds about 2 months ago, gets his prescriptions from [facility]. Is aware of subdural hygroma, was offered drainage at [facility] which he declined in 2016, has had no issues with it and denies any precipitating trauma prior to diagnosis. Medications: Reviewed: Yes Medication Review Details: Active Medications Generic Name Dose Route Start Last Admin Trade Name Rubio PRN Reason Stop Dose Admin Acetaminophen 650 mg 09/10/19 00:36 09/10/19 09:07 Tylenol PO 650 mg Q6H PRN Administration Mild/Mod Pain Or Temp >/= 101 Albuterol/Ipratrop ium 3 ml 09/10/19 00:39 09/10/19 09:38 Duoneb INHALATION 3 ml Q4H.RESPIRATORY P RN Administration SHORTNESS OF NYLA TH Atorvastatin Calci um 40 mg 09/10/19 09:00 09/10/19 09:09 Lipitor PO 40 mg DAILY NIKKIE Administration Clopidogrel Bisulf ate 75 mg 09/10/19 09:00 09/10/19 09:09 Plavix PO 75 mg DAILY NIKKIE Administration Dextrose 25 ml 09/10/19 00:40 D50w IVP ONCE PRN hypoglycemia prot ocol Protocol Dextrose 50 ml 09/10/19 00:40 D50w IVP PRN PRN hypoglycemia prot ocol Protocol Glucagon 1 mg 09/10/19 00:40 Glucagen IM ONCE PRN Adult Acute Hypog lycemia Prot. Protocol Hydrochlorothiazid e 25 mg 09/10/19 09:00 09/10/19 09:09 Hctz PO 25 mg DAILY NIKKIE Administration Diltiazem HCl 125 mg/ Sodium 125 mls @ 0 mls/h r 09/09/19 17:00 09/10/19 04:50 Chloride IV 0 mg/hr .Q0M NIKKIE 0 mls/hr Titration Protocol Per Protocol Dextrose 500 mls @ 100 mls /hr 09/10/19 00:40 D5w IV ONCE PRN Adult Acute Hypog lycemia Prot Protocol Insulin Aspart 0 unit 09/10/19 08:00 09/10/19 12:13 Novolog SUBCUT 6 unit WM&BEDTIME NIKKIE Administration Protocol Levothyroxine Sodi um 150 mcg 09/10/19 09:00 09/10/19 09:09 Synthroid PO Not Given DAILY NIKKIE Lisinopril 40 mg 09/10/19 09:00 09/10/19 09:08 Prinivil PO 40 mg DAILY NIKKIE Administration Metoprolol Tartrat e 50 mg 09/10/19 09:00 09/10/19 09:08 Lopressor PO 50 mg DAILY NIKKIE Administration Sertraline HCl 100 mg 09/10/19 09:00 09/10/19 09:09 Zoloft PO 100 mg BID NIKKIE Administration Sulfa (Sulfonamide Antibiotics) Allergy (Verified 08/08/19 13:48) Unknown Vitals/I&O/Wt Last Vital Signs Temp 97.8 F 09/10/19 11:19 Pulse 83 09/10/19 11:19 Resp 18 09/10/19 11:19 BP 101/59 09/10/19 11:19 Pulse Ox 96 09/10/19 11:19 09/09/19 09/10/19 09/10/19 22:59 06:59 14:59 Intake Total 57.833 / 57.833 720 / 720 Output Total 200 / 200 Balance -142.167 / -142.167 720 / 720 Weight last 48 hrs Weight 127.006 kg Physical Exam Const: COMMON NORMALS: no apparent distress, oriented x3 and alert GENERAL APPEARANCE: cooperative and comfortable NUTRITIONAL APPEARANCE: obese morbidly obese ORIENTATION/CONSCIOUSNESS: Yes awake HENMT: COMMON NORMALS: normocephalic, head/scalp atraumatic, hearing grossly normal bilaterally and moist oral mucous membranes HEAD & SCALP: normocephalic and atraumatic Eye: COMMON NORMALS: PERRL, EOMs intact bilaterally and conjunctivae normal CONJUNCTIVA: Yes conjunctivae normal PUPIL: Yes PERRL Neck/C-Spine: COMMON NORMALS: full ROM GENERAL: Yes normal visual inspection and Yes trachea midline OTHER: -short, thick Resp: COMMON NORMALS: normal respiratory effort, no retractions, no use of accessory muscles and clear to auscultation bilaterally EFFORT & INSPECTION: Yes able to speak in complete sentences, Yes symmetric chest movement and No tachypneic AUSCULTATION: clear to auscultation bilaterally Cardio: COMMON NORMALS: regular rate, regular rhythm, S1 normal heart sound, S2 normal heart sound and no murmurs RATE: regular rate RHYTHM: regular rhythm HEART SOUNDS: S1 normal and S2 normal GI: COMMON NORMALS: normal to inspection, nondistended, normoactive bowel sounds, soft to palpation and non-tender INSPECTION: Yes central obesity PALPATION: Yes soft Extremity: COMMON NORMALS: normal to inspection, full ROM and no clubbing, cyanosis or edema; negative for no pedal edema Neuro: COMMON NORMALS: oriented x3, moves all extremities, no focal motor deficits and no sensory deficits noted SENSORIUM/ORIENTATION: Yes alert Psych: COMMON NORMALS: mental status grossly normal, thought process normal, cooperative, affect normal and speech normal SPEECH: Yes normal speech THOUGHT PROCESS: normal thought process Skin: COMMON NORMALS: no rashes or lesions noted, no jaundice, no petechiae and no mottling GENERAL SKIN EXAM: no rashes or lesions noted Data : 09/10/19 03:03 09/10/19 03:03 Micro: Microbiology 09/10/19 01:03 Blood Culture - Preliminary Blood SPECIMEN COLLECTED 09/10/19 01:07 Blood Culture - Preliminary Blood SPECIMEN COLLECTED A&P Assessment and plan (1) Atrial fibrillation with RVR: -has known hx of atrial fibrillation, presented with RVR -has been weaned off Cardizem drip -telemetry monitoring -VSS, continue to monitor -continue BB, Coumadin on hold due to noted repeated falls at home; will resume now that there is more history available, he has been off this x 2 months -has had 2 past Echocardiograms, both limited with last one done in 08/2017 showing mildly diminished EF and mild pulmonary HTN -TSH quite high (36.6) Status: Acute Code(s): I48.91 - Unspecified atrial fibrillation (2) Repeated falls: -unclear on details of this as no collateral information available -fall precautions -Coumadin on hold, can resume -PT evaluation appreciated, did well, return home recommended Status: Acute Code(s): R29.6 - Repeated falls (3) Subdural hygroma: -has known hx of subdural hygroma that has been stable per imaging since 2017; details of how it occurred are unknown -no evidence of ventricle enlargement; noted diffuse cerebral atrophy -fall precautions -initially unclear what baseline mental status is; question of some degree of neurocognitive deficits though seems to be alert and oriented x 3, speech clear and coherent Status: Chronic Code(s): G96.0 - Cerebrospinal fluid leak (4) Hypothyroidism: -has known hx of hypothyroidism -TSH quite elevated (36.6) -has not been taking medications for some time due to running out -on levothyroxine 150 mcg daily, will need dose adjustment Status: Chronic Qualifiers: Hypothyroidism type: unspecified Qualified Code(s): E03.9 - Hypothyroidism, unspecified Code(s): E03.9 - Hypothyroidism, unspecified (5) COPD (chronic obstructive pulmonary disease): -not oxygen dependent at baseline -no evidence of acute exacerbation currently -continue to monitor respiratory status, supplemental oxygen as needed Status: Chronic Qualifiers: COPD type: unspecified COPD Qualified Code(s): J44.9 - Chronic obstructive pulmonary disease, unspecified Code(s): J44.9 - Chronic obstructive pulmonary disease, unspecified (6) Hyperlipidemia: -continue statin Status: Chronic Qualifiers: Hyperlipidemia type: unspecified Qualified Code(s): E78.5 - Hyperlipidemia, unspecified Code(s): E78.5 - Hyperlipidemia, unspecified (7) Hypertension: -VSS, continue to monitor -continue oral antihypertensives Status: Chronic Qualifiers: Hypertension type: essential hypertension Qualified Code(s): I10 - Essential (primary) hypertension Code(s): I10 - Essential (primary) hypertension Additional A&P Information -Morbid obesity: BMI-44 kg/m2 -hx of CAD s/p CABG (2012) -NIDDM type II; accucheks, ISS, hypoglycemia precautions -cardiac diabetic diet as tolerated -DVT ppx with Lovenox -Dispo: home -Code status: FULL code Attestations Medical Necessity Statement*: Patient requires hospitalization for continued management of atrial fibrillation, resumption of anticoagulation with coumadin. Time Spent in Patient Care: Greater than 35 minutes (>than 50% of time spent in counselling and/or direct pt care on unit). Coding Level of Care Code Acute Manager Of Internal Audit for Chg Fwd Exam Comprehensive Diagnoses Atrial fibrillation with RVR I48.91 Repeated falls R29.6 Subdural hygroma G96.0 Hypothyroidism E03.9 Hypothyroidism type: unspecified COPD (chronic obstructive pulmonary disease) J44.9 COPD type: unspecified COPD Hyperlipidemia E78.5 Hyperlipidemia type: unspecified Hypertension I10 Hypertension type: essential hypertension
--- NOTE | 2019-09-10 16:45 | PC.CHAP ---
Pastoral Care Encounter/Spiritual Assessment Type of Contact [] Declined director of culture visit [] Patient/Family/Request visit [] Outpatient visit [] Follow-up visit [] Physician referral [] Code/Alert [x] Routine visit [] Staff referral [] Actively dying [] Patient sleeping [] Family support [] [] Out of room [] Palliative care [] [] Receiving care in room [] Pre-surgical visit [] Trauma [] Long length of stay [] ICU visit [] Other: Relational/Emotional Strength [x] Patient feels connected with others/family/visitors/staff [] Distress [] Loneliness/isolation [] Abandonment Spirituality of Patient [x] Person of Amber [x] Attends Advent of their Amber [x] Believes in Prayer [x] Reads Bible or Scientology materials [] There are Spiritual issues to be addressed Metalizing Machine Operator Automatic Interventions [x] Prayer [x] Active listening [x] Non-anxious presence [x] Spiritual/emotional support [] Crisis/trauma care [] Spiritual counseling [] Bereavement support [] Provided bereavement packet [] Provided Bible/devotional materials [] Provided toy/stuffed animal, coloring book to patient or family member [] Provided Communion [] Anointing/[place] [] Salvation [x] Completed spiritual assessment [] Other: Impact on Illness or Injury [] Angry [] Fearful [] Anxious [] Often cries [] Exhaustion [] Unable to work [] Unable to attend druze [] Unable to walk/stand [] Unable to read [] Unable to drive [] Unable to eat/drink [] Unable to sleep [] Unable to be with family [] Patient intubated [] Other: Summary Patient asked for prayer for him and his . He stated that his was staying with their son so he can take care of her while he is in the hospital. patient was visited by Metalizing Machine Operator Automatic Onel Guzman Time spent with patient 10 minutes
[2019-09-10 17:01] LABS: Glucose Point of Care 174 mg/dL (70-110)
[2019-09-10 20:31] LABS: Glucose Point of Care 148 mg/dL (70-110)
[2019-09-11 00:18] VITALS: PULSE 83; RESP 18; O2SAT 97
[2019-09-11 02:59] VITALS: BP 146/84; PULSE 79; RESP 20; TEMP 36.6; O2SAT 97
[2019-09-11 04:14] LABS: Basophils # 0.1 10^3/uL (0.0-0.1); Basophils % 1.3 %; Eosinophils # 0.2 10^3/uL (0.0-0.8); Eosinophils % 5.1 %; Hematocrit 32.6 % (42.0-52.0); Hemoglobin 10.6 g/dL (11.7-16.6); Lymphocytes # 1.5 10^3/uL (0.8-4.8); Lymphocytes % 31.4 %; Mean Corpuscular HGB Conc 32.5 g/dL (30.0-36.0); Mean Corpuscular Hemoglobin 28.8 pg (28.0-34.0); Mean Corpuscular Volume 88.6 fL (80-94); Mean Platelet Volume 10.2 fL (7.4-10.4); Monocytes # 0.7 10^3/uL (0.2-0.9); Neutrophils # 2.3 10^3/uL (1.8-7.7); Neutrophils % 47.6 %; Nucleated Red Blood Cells % 0 %; Platelet Count 233 10^3/cmm (130-400); Red Blood Count 3.68 10^6/uL (4.1-5.3); Red Cell Distribution Width 13.6 % (12.1-15.1); White Blood Count 4.7 10^3/uL (4.0-10.0)
[2019-09-11 04:22] LABS: INR 1.19 (0.8-1.2)
[2019-09-11 04:30] LABS: Anion Gap 17.7 (5-19); Blood Urea Nitrogen 21 mg/dL (8-23); Calcium 9.1 mg/dL (8.5-10.5); Carbon Dioxide 25 mmol/L (22-29); Chloride 95 mmol/L (98-107); Glomerular Filtration Rate 55.8 mL/min (90-130); Glucose 183 mg/dL (65-115); Osmolality Calculated 279 mOsm/kg (285-295); Potassium 3.7 mmol/L (3.5-5.1); Sodium 134 mmol/L (136-145)
[2019-09-11 06:44] LABS: Glucose Point of Care 163 mg/dL (70-110)
[2019-09-11 07:25] VITALS: PULSE 82; RESP 17; O2SAT 96
[2019-09-11 08:00] VITALS: BP 156/104; PULSE 102; RESP 20; TEMP 37.1; O2SAT 98
[2019-09-11] MEDS: metoprolol tartrate 50 mg Tablet PO (08:11)
[2019-09-11] MEDS: sertraline 100 mg Tablet PO (08:11)
[2019-09-11] MEDS: hydroCHLOROthiazide 25 mg Tablet PO (08:11)
[2019-09-11] MEDS: atorvastatin 40 mg Tablet PO (08:11)
[2019-09-11] MEDS: lisinopril 20 mg Tablet 40 MG PO (08:12)
[2019-09-11] MEDS: clopidogrel 75 mg Tablet PO (08:12)
[2019-09-11] MEDS: acetaminophen 325 mg Tablet 650 MG PO (08:23)
--- NOTE | 2019-09-11 08:41 | P.DS_ITS ---
Discharge Providers Date of Admission: 09/09/19 18:20 Date of Discharge: September 11, 2019 Attending Provider at Admission: Aguila [address] Attending Provider at Discharge: Viry Salazar MD Primary Care Provider: Matthew Ray NP Diagnoses at Discharge Discharge Diagnosis (1) Atrial fibrillation with RVR: Status: Resolved Problem details: -has known hx of atrial fibrillation, presented with RVR -has been weaned off Cardizem drip and remained controlled -telemetry monitoring -VSS, continue to monitor -continue BB, Coumadin initially held due to noted repeated falls at home; resumed now that there is more history available, he has been off this x 2 months -has had 2 past Echocardiograms, both limited with last one done in 08/2017 [facility] mildly diminished EF and mild pulmonary HTN -TSH quite high (36.6) (2) Repeated falls: Status: Acute Problem details: -likely due to generalized weakness with recent illness -fall precautions -Coumadin on hold, can resume -PT evaluation appreciated, did well, return home recommended (3) Subdural hygroma: Status: Chronic Problem details: -has known hx of subdural hygroma that has been stable per imaging since 2017; details of how it occurred are unknown -no evidence of ventricle enlargement; noted diffuse cerebral atrophy -fall precautions -initially unclear what baseline mental status is; question of some degree of neurocognitive deficits though seems to be alert and oriented x 3, speech clear and coherent (4) Hypothyroidism: Status: Chronic Problem details: -has known hx of hypothyroidism -TSH quite elevated (36.6) -has not been taking medications for some time due to running out -on levothyroxine 150 mcg daily, will need dose adjustment if when TFTs repeated in 4-6 weeks with compliance, TSH remains high Qualifiers: Hypothyroidism type: unspecified Qualified Code(s): E03.9 - Hypothyroidism, unspecified (5) COPD (chronic obstructive pulmonary disease): Status: Chronic Problem details: -not oxygen dependent at baseline -no evidence of acute exacerbation currently -continue to monitor respiratory status, supplemental oxygen as needed Qualifiers: COPD type: unspecified COPD Qualified Code(s): J44.9 - Chronic obstructive pulmonary disease, unspecified (6) Hyperlipidemia: Status: Chronic Problem details: -continue statin Qualifiers: Hyperlipidemia type: unspecified Qualified Code(s): E78.5 - Hyperlipidemia, unspecified (7) Hypertension: Status: Chronic Problem details: -VSS, continue to monitor -continue oral antihypertensives Qualifiers: Hypertension type: essential hypertension Qualified Code(s): I10 - Essential (primary) hypertension Other Information Additional DC diagnoses/information: -Morbid obesity: BMI-44 kg/m2 -hx of CAD s/p CABG (2012) -NIDDM type II; accucheks, ISS, hypoglycemia precautions, A1c-8.7 Reason for Visit Reason for Visit: Reason For Visit: AFIB W RVR; FALLS Hospital Course Hospital Course: Patient was admitted to the cardiac stepdown unit and placed on telemetry monitoring. He required Cardizem drip secondary to A. fib with RVR though this was quickly weaned off. He is home medications were resumed, he had been off of this for approximately 2 months after he ran out of his medications including beta-tory and Coumadin. He has had prior echoes done which have been very poor quality as noted above. Following discontinuation of Cardizem drip he has remained controlled in terms of his heart rate. Has been evaluated by physical therapy and cleared for discharge home with use of walker. He has had no falls during his hospital stay. He will need close monitoring of his INR with resumption of Coumadin. TSH was noted to be quite elevated which is likely secondary to noncompliance with his medication regimen. He will need follow-up TFTs in approximately 4 to 6 weeks while taking his levothyroxine to determine if need for dose adjustment. Has been provided with prescriptions of all of his medications as reflected below. He will need to follow-up with his primary care provider within 1 week. He will need to have an INR checked at that time. We have discussed need for medication compliance which he understands. He was noted to have a low-grade temperature of 100.2 with no infectious etiology identified. No need for antibiotic treatment at this time as he has been hemodynamically stable and afebrile since. Will be discharged home this afternoon. Discharge Summary: -Patient to follow-up with primary care provider within 1 week. He will need INR checked as he is on Coumadin secondary to history of chronic A. fib. Physical Exam Const: COMMON NORMALS: no apparent distress, oriented x3 and alert GENERAL APPEARANCE: cooperative and comfortable NUTRITIONAL APPEARANCE: obese morbidly obese ORIENTATION/CONSCIOUSNESS: Yes awake HENMT: COMMON NORMALS: normocephalic, head/scalp atraumatic, hearing grossly normal bilaterally and moist oral mucous membranes HEAD & SCALP: normocephalic and atraumatic Eye: COMMON NORMALS: PERRL, EOMs intact bilaterally and conjunctivae normal CONJUNCTIVA: Yes conjunctivae normal PUPIL: Yes PERRL Neck/C-Spine: COMMON NORMALS: full ROM GENERAL: Yes normal visual inspection and Yes trachea midline OTHER: -short, thick Resp: COMMON NORMALS: normal respiratory effort, no retractions, no use of accessory muscles and clear to auscultation bilaterally EFFORT & INSPECTION: Yes able to speak in complete sentences, Yes symmetric chest movement and No tachypneic AUSCULTATION: clear to auscultation bilaterally Cardio: COMMON NORMALS: regular rate, regular rhythm, S1 normal heart sound, S2 normal heart sound and no murmurs RATE: regular rate RHYTHM: regular rhythm HEART SOUNDS: S1 normal and S2 normal GI: COMMON NORMALS: normal to inspection, nondistended, normoactive bowel sounds, soft to palpation and non-tender INSPECTION: Yes central obesity PALPATION: Yes soft Extremity: COMMON NORMALS: normal to inspection, full ROM and no clubbing, cyanosis or edema; negative for no pedal edema Neuro: COMMON NORMALS: oriented x3, moves all extremities, no focal motor deficits and no sensory deficits noted SENSORIUM/ORIENTATION: Yes alert Psych: COMMON NORMALS: mental status grossly normal, thought process normal, cooperative, affect normal and speech normal SPEECH: Yes normal speech THOUGHT PROCESS: normal thought process Skin: COMMON NORMALS: no rashes or lesions noted, no jaundice, no petechiae a nd no mottling GENERAL SKIN EXAM: no rashes or lesions noted Discharge Data Data Completed and Pending: Completed Studies During Hospitalization Category Date Time Status CT head wo con* 7 0450 Urgent Cat Scan 09/09/19 18:16 Completed XR chest 1V karen ble [id number] Stat Exams 09/09/19 17:35 Completed XR chest 2V* 7104 6 Routine Exams 09/10/19 07:00 Completed Pending at discharge Category Date Time Status Blood Culture Sta t Lab 09/10/19 01:03 Results Free T4 Free Thyr oxine Routine Lab 09/11/19 08:35 Ordered Labs from last 24 hours 09/11/19 09/11/19 09/11/19 06:30 03:10 03:10 WBC 4.7 RBC 3.68 L Hgb 10.6 L Hct 32.6 L MCV 88.6 MCH 28.8 MCHC 32.5 RDW 13.6 Plt Count 233 MPV 10.2 Neut % (Auto) 47.6 Lymph % (Auto) 31.4 [place] % (Auto) 14.0 Eos % (Auto) 5.1 Baso % (Auto) 1.3 Neut # (Auto) 2.3 Lymph # (Auto) 1.5 [place] # (Auto) 0.7 Eos # (Auto) 0.2 Baso # (Auto) 0.1 Nucleated RBC % (a uto) 0 Nucleated RBCs # 0.0 PT INR Sodium 134 L Potassium 3.7 Chloride 95 L Carbon Dioxide 25 Anion Gap 17.7 BUN 21 Creatinine 1.3 H GFR Calculation 55.8 L Glucose 183 H POC Glucose 163 Calculated Osmolal ity 279 L Calcium 9.1 09/11/19 09/10/19 09/10/19 03:10 20:17 16:44 WBC RBC Hgb Hct MCV MCH MCHC RDW Plt Count MPV Neut % (Auto) Lymph % (Auto) [place] % (Auto) Eos % (Auto) Baso % (Auto) Neut # (Auto) Lymph # (Auto) [place] # (Auto) Eos # (Auto) Baso # (Auto) Nucleated RBC % (a uto) Nucleated RBCs # PT 15.20 H INR 1.19 Sodium Potassium Chloride Carbon Dioxide Anion Gap BUN Creatinine GFR Calculation Glucose POC Glucose 148 174 Calculated Osmolal ity Calcium 09/10/19 11:37 WBC RBC Hgb Hct MCV MCH MCHC RDW Plt Count MPV Neut % (Auto) Lymph % (Auto) [place] % (Auto) Eos % (Auto) Baso % (Auto) Neut # (Auto) Lymph # (Auto) [place] # (Auto) Eos # (Auto) Baso # (Auto) Nucleated RBC % (a uto) Nucleated RBCs # PT INR Sodium Potassium Chloride Carbon Dioxide Anion Gap BUN Creatinine GFR Calculation Glucose POC Glucose 231 Calculated Osmolal ity Calcium Vitals: Last Vital Signs Temp 97.8 F 09/11/19 02:59 Pulse 82 09/11/19 07:25 Resp 17 09/11/19 07:25 BP 146/84 09/11/19 02:59 Pulse Ox 96 09/11/19 07:25 Discharge Plan Discharge Patient Disposition: Home, Self-Care Condition: Stable Prescriptions: New lisinopril 20 mg Tablet 40 mg PO DAILY 30 Days Qty: 60 RF: 0 hydrochlorothiazide 25 mg Tablet 25 mg PO DAILY 30 Days Qty: 30 RF: 0 Continued sertraline 100 mg Tablet 100 mg PO BID 30 Days Qty: 60 RF: 0 Plavix 75 mg Tablet 75 mg PO DAILY 30 Days Qty: 30 RF: 0 metformin 1,000 mg Tablet 1,000 mg PO BID 30 Days Qty: 60 RF: 0 warfarin 5 mg Tablet 5 mg PO DAILY 30 Days Qty: 30 RF: 0 metoprolol tartrate 50 mg tablet 50 mg PO DAILY 30 Days Qty: 30 RF: 0 levothyroxine 150 mcg Capsule 150 mcg PO DAILY 30 Days Qty: 30 RF: 0 Combivent Respimat 20-100 mcg/actuation Mist 2 puff INHALATION QID Qty: 1 RF: 0 Changed atorvastatin 40 mg Tablet 40 mg PO BEDTIME 30 Days Qty: 30 RF: 0 Discontinued lisinopril-hydrochlorothiazide 20-12.5 mg tablet 2 tab PO DAILY RF: 0 Discharge Orders: Discharge Order (Routine); Ordered 09/11/19 Ordered By: Viry Salazar Referrals: Matthew Ray, ELECTROMECHANICAL EQUIPMENT ASSEMBLER [Primary Care Provider] - 4-7 days (You have a Post-hospital discharge follow up with Matthew Ray at [facility] on September 17 at 9:00am. Any questions or appointment changes, please call them at [phone]) Discharge Diet: Cardiac and Diabetic Discharge Activity: Use walker/crutches as instructed Patient Instructions: Dizziness, Lisinopril (By mouth), Hydrochlorothiazide (By mouth), Atrial Fibrillation (DC), Fall Prevention (DC) Discharge Date/Time: 09/11/19 10:44 Discharge Attestations Time Spent in Discharge Care*: greater than 30 min Specific Discharge Activities: Specific discharge activities: educating patient, discussing with case management coordinator/social workers/dc planners, documenting/other paperwork and evaluating patient/reviewing data Status at Discharge: Cognitive status at discharge: cognitively intact , Behavioral status at discharge: cooperative , Functional status at discharge: uses cane/walker Overall status at discharge: patient is back to baseline Quality Metrics Clinical Quality Measures During this hospital stay, did patient experience: None Coding Level of Care Code Acute Bogger Operator for Chg Fwd Exam Comprehensive Diagnoses Atrial fibrillation with RVR I48.91 Repeated falls R29.6 Subdural hygroma G96.0 Hypothyroidism E03.9 Hypothyroidism type: unspecified COPD (chronic obstructive pulmonary disease) J44.9 COPD type: unspecified COPD Hyperlipidemia E78.5 Hyperlipidemia type: unspecified Hypertension I10 Hypertension type: essential hypertension
[2019-09-11 09:14] LABS: Free T4 Free Thyroxine 0.36 ng/dL (0.82-1.77)
--- NOTE | 2019-09-11 10:00 | PC.CHAP ---
Pastoral Care Encounter/Spiritual Assessment Type of Contact [] Declined sales store checker visit [] Patient/Family/Request visit [] Outpatient visit [] Follow-up visit [] Physician referral [] Code/Alert [x] Routine visit [] Staff referral [] Actively dying [] Patient sleeping [] Family support [] [] Out of room [] Palliative care [] [] Receiving care in room [] Pre-surgical visit [] Trauma [] Long length of stay [] ICU visit [] Other: Relational/Emotional Strength [] Patient feels connected with others/family/visitors/staff [] Distress [] Loneliness/isolation [] Abandonment Spirituality of Patient [x] Person of Amber [x] Attends Episcopal of their Amber [x Believes in Prayer [x] Reads Bible or Latter Day materials [] There are Spiritual issues to be addressed Application Support Manager Interventions [x] Prayer [] Active listening [] Non-anxious presence [] Spiritual/emotional support [] Crisis/trauma care [] Spiritual counseling [] Bereavement support [] Provided bereavement packet [] Provided Bible/devotional materials [] Provided toy/stuffed animal, coloring book to patient or family member [] Provided Communion [] Anointing/[place] [] Salvation [x] Completed spiritual assessment [] Other: Impact on Illness or Injury [] Angry [] Fearful [] Anxious [] Often cries [] Exhaustion [] Unable to work [] Unable to attend sabianist [] Unable to walk/stand [] Unable to read [] Unable to drive [] Unable to eat/drink [] Unable to sleep [] Unable to be with family [] Patient intubated [] Other: Summary Douglas visited with patient. Patient now feeling issues getting better. Time spent with patient 15 min
[2019-09-11 10:38] VITALS: BP 156/104; PULSE 102; RESP 20; TEMP 37.1; O2SAT 98
--- NOTE | 2019-09-11 10:42 | PC.NURSE ---
PATIENT AND FAMILY MEMBER GIVEN DISCHARGE INSTRUCTIONS AND BOTH VERBALIZED UNDERSTANDING ; IV REMOVED AND PRESSURE DRESSING APPLIED WITH NO BLEEDING NOTED ; VSS ; PATIENT TO EXIT VIA WHEELCHAIR WITH NO ISSUES
== END 2019-09-11 10:44 | disposition home or self-care (01) | DRG 309 ==
LOC: ER 15:23 → CSU 18:35
PROVIDERS: Student in an Organized Health Care Education/Training Program; Admitting Provider Internal Medicine; Emergency Provider Family Medicine; Family Provider Internal Medicine; PCP Nurse Practitioner Family; Visit Provider Family Medicine
DX: I48.91 Unspecified atrial fibrillation (principal); G96.0 Cerebrospinal fluid leak; Z68.41 Body mass index [BMI] 40.0-44.9, adult; R29.6 Repeated falls; E03.9 Hypothyroidism, unspecified; J44.9 Chronic obstructive pulmonary disease, unspecified; E78.5 Hyperlipidemia, unspecified; E66.01 Morbid (severe) obesity due to excess calories; I10 Essential (primary) hypertension; I25.10 Atherosclerotic heart disease of native coronary artery without angina pectoris; E11.9 Type 2 diabetes mellitus without complications; Z79.84 Long term (current) use of oral hypoglycemic drugs; Z79.02 Long term (current) use of antithrombotics/antiplatelets; Z79.01 Long term (current) use of anticoagulants; Z79.890 Hormone replacement therapy; Z79.51 Long term (current) use of inhaled steroids
CPT/HCPCS: 12345; 36415; 36416; 70450; 71045; 71046; 80048; 80053; 81001; 82962; 83036; 83690; 83880; 84439; 84443; 84484; 85025; 85610; 87040; 93005; 94640; 96372; 96375; 97161; 97530; 99284; J1815; J1940; J2270; J3490

== ENCOUNTER 2020-03-17 13:42 | Emergency (ER) | payer MEDICARE, SELFPAY ==
[2020-03-17 14:08] VITALS: BP 135/90; PULSE 88; RESP 18; TEMP 37.1; O2SAT 98; BMI 36.0
--- NOTE | 2020-03-17 14:40 | XRR_ITS ---
PROCEDURE INFORMATION: Exam: XR Chest, 1 View Exam date and time: 03/17/2020 2:58 PM Age: 65 years old Clinical indication: Cough and shortness of breath; Prior surgery; Surgery type: Open heart; Additional info: Cough x 3 months TECHNIQUE: Imaging protocol: XR of the chest Views: 1 view. COMPARISON: CR XR chest 2V* [id number] 09/10/2019 7:46 AM FINDINGS: Lungs: Low lung volumes are seen.. No consolidation. Pleural space: Unremarkable. No pleural effusion. No pneumothorax. Heart/Mediastinum: Unremarkable. No cardiomegaly. Bones/joints: Metallic sternotomy wires are in place. XR/XR chest 1V portable [id number] IMPRESSION: No acute findings. Metallic sternotomy wires are in place.
[2020-03-17 15:35] VITALS: BP 169/101; PULSE 100; RESP 16; O2SAT 98
--- NOTE | 2020-03-17 15:45 | ED_ITS ---
HPI - Nausea/Vomiting/Diarrhea General: Chief complaint: Nausea/Vomiting/Diarrhea Stated complaint: FLU SYMPTOMS Time Seen by Provider: 03/17/20 15:05 History of Present Illness: HPI Narrative: 65-year-old male presents emergency room with complaint of diarrhea said some nausea but no vomiting denies any hematochezia. He has had a very slightly productive cough without fever. he also been very fatigued the last several days. He has a mild slight productive cough that is been persistent the last few days denies fever. MD elicited complaint: nausea and diarrhea Onset (ago): day(s) Description of diarrhea: watery Associated nausea: Yes Associated abdominal pain: Yes Location of pain: Diffuse Pain consistency: intermittent Severity: moderate Quality: cramping Exacerbating factors: none Associated symtoms: Reports cough, fatigue, malaise, myalgias and nausea; Denies bloating, chest pain, decreased urine output, dizziness, dysuria, fevers/chills, headache(s), anorexia, numbness, palpitations, rash, short of breath, tinnitus or weakness Review of Systems Const: Reports: fatigue and malaise ENMT: Denies: tinnitus Card: Denies: chest pain or palpitations Resp: Denies: dyspnea, productive cough or non-productive cough GI: Reports: nausea; Denies: bloating : Denies: dysuria Skin/Breast: Denies: rash or pruritus Neuro: Denies: headache(s) or dizziness [facility] ED PFSH: Medical History COPD (chronic obstructive pulmonary disease) -not oxygen dependent at baseline -no evidence of acute exacerbation currently -continue to monitor respiratory status, supplemental oxygen as needed Hyperlipidemia -continue statin Hypertension -VSS, continue to monitor -continue oral antihypertensives Hypothyroidism -has known hx of hypothyroidism -TSH quite elevated (36.6) -has not been taking medications for some time due to running out -on levothyroxine 150 mcg daily, will need dose adjustment if when TFTs repeated in 4-6 weeks with compliance, TSH remains high Obesity Subdural hygroma -has known hx of subdural hygroma that has been stable per imaging since 2017; details of how it occurred are unknown -no evidence of ventricle enlargement; noted diffuse cerebral atrophy -fall precautions -initially unclear what baseline mental status is; question of some degree of neurocognitive deficits though seems to be alert and oriented x 3, speech clear and coherent Surgical History Hx of CABG Social History Smoking and tobacco status: never smoked Physical Exam Const: COMMON NORMALS: no acute distress GENERAL APPEARANCE: cooperative and comfortable ORIENTATION/CONSCIOUSNESS: Yes awake, Yes oriented to person, Yes oriented to place and Yes oriented to time HENMT: COMMON NORMALS: normocephalic, atraumatic and hearing grossly normal bilaterally HEAD & SCALP: normocephalic and atraumatic Eye: COMMON NORMALS: Equal, round and reactive pupils present, EOMs intact bilaterally, conjunctivae normal and no scleral icterus CONJUNCTIVA: Yes conjunctivae normal PUPIL: Yes Equal, round and reactive pupils present Neck/C-Spine: COMMON NORMALS: full ROM, no lymphadenopathy, supple and no JVD Lymph: LYMPHATIC: no lymphadenopathy noted and no lymphedema noted Resp: COMMON NORMALS: normal respiratory effort, No retractions, No use of accessory muscles and clear to auscultation bilaterally AUSCULTATION: clear to auscultation bilaterally Cardio: COMMON NORMALS: no JVD, regular rate, regular rhythm and No murmurs present (Cardio) RATE: regular rate RHYTHM: regular rhythm GI: COMMON NORMALS: Soft to palpation and No hepatosplenomegaly present AUSCULTATION: Yes normoactive bowel sounds PALPATION: Yes Soft to palpation, No Tenderness to palpation present (GI), No Guarding due to palpation present (GI) and Yes No hepatosplenomegaly present Extremity: COMMON NORMALS: normal to inspection, capillary refill normal, no clubbing, cyanosis or edema, no calf tenderness and no pedal edema Neuro: SENSORIUM/ORIENTATION: Yes oriented to person, Yes oriented to place and Yes oriented to time Skin: COMMON NORMALS: no rashes or lesions noted GENERAL SKIN EXAM: no rashes or lesions noted Course Vital Signs: Vital signs: Vital Signs Temperature 98.8 F 03/17/20 14:08 Pulse Rate 84 03/17/20 17:35 Respiratory Rate 18 03/17/20 17:35 Blood Pressure 153/110 03/17/20 17:35 Pulse Oximetry 100 03/17/20 17:35 MDM - Nausea/Vomiting/Diarrhea MDM Narrative: Medical decision making narrative: Work-up essentially negative. Have seen a fair amount of GI symptoms associated with COVID will get a complete swab and discharge him home instructed to maintain quarantine until we call him the results of his PCR swab. Lab Data: Labs: Lab Results 03/17/20 03/17/20 03/17/20 Range/Units 15:39 15:39 15:39 WBC 11.2 H (4.0-10.0) 10^3/ uL RBC 4.41 (4.1-5.3) 10^6/u L Hgb 12.7 (11.7-16.6) g/dL Hct 38.8 L (42.0-52.0) % MCV 88.0 (80-94) fL MCH 28.8 (28.0-34.0) pg MCHC 32.7 (30.0-36.0) g/dL RDW 13.5 (12.1-15.1) % Plt Count 272 (130-400) 10^3/c mm MPV 10.0 (7.4-10.4) fL Neut % (Auto) 62.4 % Lymph % (Auto) 26.9 % Dougherty % (Auto) 7.2 % Eos % (Auto) 2.3 % Baso % (Auto) 0.9 % Neut # (Auto) 6.98 (1.8-7.7) 10^3/u L Lymph # (Auto) 3.0 (0.8-4.8) 10^3/u L Dougherty # (Auto) 0.8 (0.2-0.9) 10^3/u L Eos # (Auto) 0.3 (0.0-0.8) 10^3/u L Baso # (Auto) 0.1 (0.0-0.1) 10^3/u L Nucleated RBC % (a uto) 0 % Nucleated RBCs # 0.0 /100WBC Sodium 136 (136-145) mmol/L Potassium 4.2 (3.5-5.1) mmol/L Chloride 102 (98-107) mmol/L Carbon Dioxide 22 (22-29) mmol/L Anion Gap 16.2 (5-19) BUN 18 (8-23) mg/dL Creatinine 0.9 (0.7-1.2) mg/dL GFR Calculation 85.0 L (90-130) mL/min Glucose 146 H (65-115) mg/dL Calculated Osmolal ity 281 L (285-295) mOsm/k g Lactic Acid 1.0 (0.5-2.2) mmol/L Calcium 9.1 (8.5-10.5) mg/dL Magnesium 2.1 (1.7-2.3) mg/dL Total Bilirubin 0.5 (0.15-1.2) mg/dL AST 28 (0-40) U/L ALT 17 (0-41) U/L Alkaline Phosphata se 152 H (40-130) IU/L Total Protein 8.0 (6.6-8.7) g/dL Albumin 4.4 (3.5-5.2) g/dL Globulin 3.6 (1.3-4.6) g/dL Urine Color (Yellow) Urine Appearance (CLEAR) Urine pH (5-7) Ur Specific Gravit y (1.005-1.030) Urine Protein (Negative) Urine Glucose (UA) (Normal) Urine Ketones (Negative) Urine Blood (Negative) Urine Nitrate (Negative) Urine Bilirubin (NEGATIVE) Urine Urobilinogen (Negative) mg/dL Ur Leukocyte Janneth ase (Negative) Urine RBC (0-2) /hpf Urine WBC (0-5) /hpf Ur Squamous Epith Cells (0-5) Amorphous Sediment Urine Bacteria (NONE) Serum Ketones Negative (Negative) 03/17/20 Range/Units 15:54 WBC (4.0-10.0) 10^3/ uL RBC (4.1-5.3) 10^6/u L Hgb (11.7-16.6) g/dL Hct (42.0-52.0) % MCV (80-94) fL MCH (28.0-34.0) pg MCHC (30.0-36.0) g/dL RDW (12.1-15.1) % Plt Count (130-400) 10^3/c mm MPV (7.4-10.4) fL Neut % (Auto) % Lymph % (Auto) % Dougherty % (Auto) % Eos % (Auto) % Baso % (Auto) % Neut # (Auto) (1.8-7.7) 10^3/u L Lymph # (Auto) (0.8-4.8) 10^3/u L Dougherty # (Auto) (0.2-0.9) 10^3/u L Eos # (Auto) (0.0-0.8) 10^3/u L Baso # (Auto) (0.0-0.1) 10^3/u L Nucleated RBC % (a uto) % Nucleated RBCs # /100WBC Sodium (136-145) mmol/L Potassium (3.5-5.1) mmol/L Chloride (98-107) mmol/L Carbon Dioxide (22-29) mmol/L Anion Gap (5-19) BUN (8-23) mg/dL Creatinine (0.7-1.2) mg/dL GFR Calculation (90-130) mL/min Glucose (65-115) mg/dL Calculated Osmolal ity (285-295) mOsm/k g Lactic Acid (0.5-2.2) mmol/L Calcium (8.5-10.5) mg/dL Magnesium (1.7-2.3) mg/dL Total Bilirubin (0.15-1.2) mg/dL AST (0-40) U/L ALT (0-41) U/L Alkaline Phosphata se (40-130) IU/L Total Protein (6.6-8.7) g/dL Albumin (3.5-5.2) g/dL Globulin (1.3-4.6) g/dL Urine Color Straw (Yellow) Urine Appearance Clear (CLEAR) Urine pH 5 (5-7) Ur Specific Gravit y 1.005 (1.005-1.030) Urine Protein Neg (Negative) Urine Glucose (UA) Norm (Normal) Urine Ketones Negative (Negative) Urine Blood Neg (Negative) Urine Nitrate Negative (Negative) Urine Bilirubin Neg (NEGATIVE) Urine Urobilinogen Norm (Negative) mg/dL Ur Leukocyte Janneth ase Negative (Negative) Urine RBC None (0-2) /hpf Urine WBC None (0-5) /hpf Ur Squamous Epith Cells 0-4 H (0-5) Amorphous Sediment Not Reportable Urine Bacteria Trace (NONE) Serum Ketones (Negative) Discharge Plan Discharge Patient Disposition: Home Clinical Impression: Diarrhea Condition: Stable Prescriptions: No Action sertraline 100 mg Tablet 100 mg PO BID 30 Days Qty: 60 RF: 0 clopidogrel [Plavix] 75 mg Tablet 75 mg PO DAILY 30 Days Qty: 30 RF: 0 metformin 1,000 mg Tablet 1,000 mg PO BID 30 Days Qty: 60 RF: 0 metoprolol tartrate 50 mg tablet 50 mg PO DAILY 30 Days Qty: 30 RF: 0 Combivent Respimat 20-100 mcg/actuation Mist 2 puff INHALATION QID Qty: 1 RF: 0 levothyroxine 175 mcg Tablet 175 mcg PO DAILY RF: 0 lisinopril 20 mg Tablet 20 mg PO DAILY RF: 0 hydrochlorothiazide 25 mg Tablet 25 mg PO DAILY RF: 0 atorvastatin 40 mg tablet 80 mg PO BEDTIME RF: 0 Discharge Orders: Discharge Order (Routine); Ordered 03/17/20 Ordered By: Artie Campa Referrals: Matthew Ray NP [Primary Care Provider] - Discharge Diet: Usual diet Discharge Activity: Increase activity as tolerated Patient Instructions: Diarrhea - Adult, Clear Liquid Diet (ED) Activity Restrictions/Additional Instructions: Clear liquid diet for 48 hours and advance as tolerated return if you have further problems. Discharge Date/Time: 03/17/20 17:36 Coding Level of Care Code ED Furniture Packer for Bruna Fwd Exam Comprehensive
[2020-03-17 15:47] LABS: Basophils # 0.1 10^3/uL (0.0-0.1); Basophils % 0.9 %; Eosinophils # 0.3 10^3/uL (0.0-0.8); Eosinophils % 2.3 %; Hematocrit 38.8 % (42.0-52.0); Hemoglobin 12.7 g/dL (11.7-16.6); Lymphocytes % 26.9 %; Mean Corpuscular HGB Conc 32.7 g/dL (30.0-36.0); Mean Corpuscular Hemoglobin 28.8 pg (28.0-34.0); Monocytes # 0.8 10^3/uL (0.2-0.9); Monocytes % 7.2 %; Neutrophils # 6.98 10^3/uL (1.8-7.7); Neutrophils % 62.4 %; Nucleated Red Blood Cells % 0 %; Platelet Count 272 10^3/cmm (130-400); Red Blood Count 4.41 10^6/uL (4.1-5.3); Red Cell Distribution Width 13.5 % (12.1-15.1); White Blood Count 11.2 10^3/uL (4.0-10.0)
[2020-03-17] MEDS: sodium chloride 0.9% 1,000 ML 999 ML IV (15:52)
[2020-03-17 15:57] LABS: Ketone (Acetest) Serum Negative (Negative)
[2020-03-17 16:11] LABS: Alanine Aminotransferase 17 U/L (0-41); Albumin Level 4.4 g/dL (3.5-5.2); Alkaline Phosphatase 152 IU/L (40-130); Anion Gap 16.2 (5-19); Aspartate Amino Transferase 28 U/L (0-40); Blood Urea Nitrogen 18 mg/dL (8-23); Calcium 9.1 mg/dL (8.5-10.5); Carbon Dioxide 22 mmol/L (22-29); Chloride 102 mmol/L (98-107); Globulin 3.6 g/dL (1.3-4.6); Glucose 146 mg/dL (65-115); Magnesium 2.1 mg/dL (1.7-2.3); Osmolality Calculated 281 mOsm/kg (285-295); Potassium 4.2 mmol/L (3.5-5.1); Sodium 136 mmol/L (136-145); Total Bilirubin 0.5 mg/dL (0.15-1.2)
--- NOTE | 2020-03-17 16:16 | PC.NURSE ---
Read and agree with assessment.
[2020-03-17 16:21] LABS: Bilirubin Urine Neg (NEGATIVE); Blood Urine Neg (Negative); Glucose Urine UA Norm (Normal); Ketones Urine Negative (Negative); Leukocyte Esterase Urine Negative (Negative); Nitrate Urine Negative (Negative); Protein Urine Neg (Negative); Specific Gravity, Urine 1.005 (1.005-1.030); Urine Appearance Clear (CLEAR); Urine Color Straw (Yellow); Urobilinogen Urine Norm (Negative); pH Urine 5 (5-7)
[2020-03-17 16:30] LABS: Add Urine Culture? No; Bacteria Urine TRACE; Squamous Epithelial Cell Urine 0-4 (0-5)
[2020-03-17 17:35] VITALS: BP 153/110; PULSE 84; RESP 18; O2SAT 100
[2020-03-19 17:02] LABS: Quest SARS-CoV-2 RNA NOT DETECTED (NOT DETECTED)
--- NOTE | 2020-03-20 16:10 | PC.NURSE ---
Pt contacted and notified of negative COVID test.
== END 2020-03-17 17:36 | disposition home or self-care (01) ==
PROVIDERS: Emergency Medicine; Emergency Provider Family Medicine; PCP Nurse Practitioner Family
DX: R19.7 Diarrhea, unspecified (principal); Z79.02 Long term (current) use of antithrombotics/antiplatelets; Z79.84 Long term (current) use of oral hypoglycemic drugs; J44.9 Chronic obstructive pulmonary disease, unspecified; E78.5 Hyperlipidemia, unspecified; I10 Essential (primary) hypertension; Z95.1 Presence of aortocoronary bypass graft
CPT/HCPCS: 12345; 36415; 71045; 80053; 81001; 82009; 83605; 83735; 85025; 87635; 96360; 99283; J7030

== ENCOUNTER 2021-04-11 08:53 | Emergency (ER) | payer MEDICARE, SELFPAY ==
[2021-04-11 09:07] VITALS: BP 146/77; PULSE 93; RESP 18; TEMP 36.8; O2SAT 99; BMI 40.7
--- NOTE | 2021-04-11 09:46 | ECG_ITS ---
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 Measurements Intervals [place] Rate: 76 P: PA: QRS: -40 QRSD: 133 T: 122 QT: 444 QTc: 501 Interpretive Statements ATRIAL FIBRILLATION LEFT AXIS DEVIATION [QRS AXIS < -30] INTRAVENTRICULAR CONDUCTION DELAY [130+ ms QRS DURATION] POSSIBLE LATERAL MYOCARDIAL INFARCTION , OF INDETERMINATE AGE [30 ms Q WAVE IN I/aVL/V5/V6] Compared to ECG 09/09/2019 20:30:18 Left-axis deviation now present Intraventricular conduction delay now present Myocardial infarct finding now present Incomplete right bundle-branch block no longer present Left anterior fascicular block no longer present T-wave abnormality no longer present Electronically Signed On 04-11-2021 21:09:01 CDT by Ryan Jeong M.D. [email or web address]
[2021-04-11] MEDS: sodium chloride 0.9% 1,000 ML 999 ML IV (09:50)
[2021-04-11 09:52] LABS: Basophils # 0.1 10^3/uL (0.0-0.1); Basophils % 0.8 %; Eosinophils # 0.2 10^3/uL (0.0-0.8); Eosinophils % 2.3 %; Hematocrit 36.4 % (42.0-52.0); Hemoglobin 12.2 g/dL (11.7-16.6); Lymphocytes # 2.4 10^3/uL (0.8-4.8); Lymphocytes % 23.1 %; Mean Corpuscular HGB Conc 33.5 g/dL (30.0-36.0); Mean Corpuscular Volume 89.7 fl (80-94); Monocytes # 0.6 10^3/uL (0.2-0.9); Monocytes % 5.8 %; Neutrophils # 7.14 10^3/uL (1.8-7.7); Neutrophils % 67.7 %; Nucleated Red Blood Cells % 0 %; Platelet Count 284 10^3/cmm (130-400); Red Blood Count 4.06 10^6/uL (4.1-5.3); Red Cell Distribution Width 13.2 % (12.1-15.1); White Blood Count 10.5 10^3/uL (4.0-10.0)
[2021-04-11 10:12] LABS: Alanine Aminotransferase 16 U/L (0-41); Albumin Level 4.1 g/dL (3.5-5.2); Alkaline Phosphatase 166 IU/L (40-130); Anion Gap 13.4 (5-19); Aspartate Amino Transferase 42 U/L (0-40); Blood Urea Nitrogen 9 mg/dL (8-23); Calcium 8.8 mg/dL (8.5-10.5); Carbon Dioxide 30 mmol/L (22-29); Chloride 92 mmol/L (98-107); Globulin 3.8 g/dL (1.3-4.6); Glomerular Filtration Rate 84.7 mL/min (90-130); Glucose 148 mg/dL (65-115); Osmolality Calculated 275 mOsm/kg (285-295); Potassium 3.4 mmol/L (3.5-5.1); Sodium 132 mmol/L (136-145); Total Bilirubin 0.6 mg/dL (0.15-1.2); Total Protein 7.9 g/dL (6.6-8.7)
[2021-04-11 10:14] LABS: Creatine Phosphokinase 836 U/L (39-308)
--- NOTE | 2021-04-11 10:20 | CTR_ITS ---
PROCEDURE INFORMATION: Exam: CT Abdomen And Pelvis With Contrast Exam date and time: 04/11/2021 10:20 AM Age: 66 years old Clinical indication: Abdominal pain; Generalized; Additional info: Abd pain TECHNIQUE: Imaging protocol: Computed tomography of the abdomen and pelvis with contrast. Total images: 258 Radiation optimization: All CT scans at this facility use at least one of these dose optimization techniques: automated exposure control; mA and/or kV adjustment per patient size (includes targeted exams where dose is matched to clinical indication); or iterative reconstruction. Contrast material: OMNI 300; Contrast volume: 95 ml; Contrast route: INTRAVENOUS (IV); COMPARISON: CR XR chest 1V portable [id number] 03/17/2020 2:43 PM RADIATION DOSE METRICS: Total DLP (mGy-cm): 1751.33 FINDINGS: Liver: Benign liver granuloma. Gallbladder and bile ducts: Normal. No calcified stones. No ductal dilation. Pancreas: Normal. No ductal dilation. Spleen: Normal. No splenomegaly. Adrenal glands: Normal. No mass. Kidneys and ureters: 3.1 cm incidental right renal cyst, requiring no further evaluation. Stomach and bowel: Unremarkable. No obstruction. No mucosal thickening. Appendix: No evidence of appendicitis. Intraperitoneal space: Unremarkable. No free air. No significant fluid collection. Vasculature: Mild atherosclerotic disease is evident. Lymph nodes: Unremarkable. No enlarged lymph nodes. Urinary bladder: Unremarkable as visualized. Reproductive: Unremarkable as visualized. Bones/joints: Bridging osteophytes are seen spanning the SI joints bilaterally. Mild scattered degenerative changes of the spine. Soft tissues: Unremarkable. CT/CT abdomen pelvis w con* [id number] IMPRESSION: No acute findings. Radiation Dose CTDIVOL = (mGy): DLP = 1751.33 (mGy-cm)
--- NOTE | 2021-04-11 10:20 | ED_ITS ---
HPI - Abdominal Pain General: Chief Complaint: General Medical Stated Complaint: feels dehydrated Time Seen by Provider: 04/11/21 08:57 History of Present Illness: HPI narrative: 66-year-old male presents emergency room with generalized abdominal pain that he has had for the last week. Describes the pain is 8 out of 10. He has had diarrhea with it as well has not had any vomiting. He denies hematochezia or melena. Denies any dysuria urgency or frequency no chest pain no difficulty breathing. He describes the pain is diffuse and does not really localize it very well. Onset (ago): week(s) (1) Pain Consistency: constant Location: Diffuse Severity: moderate Quality: cramping Radiation: none Exacerbating factors: eating Relieving factors: nothing Associated Symptoms: Reports anorexia, bloating, change in bowel habits, change in stool character, GI cramping, diarrhea, nausea, poor appetite and vomiting; Denies belching, chills, coffee ground emesis, constipation, dyspepsia, dysuria, excessive flatus, fever(s), heartburn, hematochezia, hematuria, hematemesis, fecal incontinence, loose stools, melena and syncope Review of Systems Const: Denies: fever(s) or chills ENMT: Denies: throat pain, ear or mastoid pain, nasal discharge or nasal congestion Card: Denies: syncope Resp: Denies: dyspnea, productive cough or non-productive cough GI: Reports: nausea, vomiting, diarrhea, bloating, GI cramping, change in bowel habits and change in stool character; Denies: hematemesis, coffee ground emesis, heartburn, constipation, belching, excessive flatus, fecal incontinence, hematochezia or melena : Denies: dysuria or hematuria Skin/Breast: Denies: rash or pruritus PFS ED PFSH: Medical History (Updated 04/11/21 @ 16:53 by Artie Campa DO) COPD (chronic obstructive pulmonary disease) -not oxygen dependent at baseline -no evidence of acute exacerbation currently -continue to monitor respiratory status, supplemental oxygen as needed Hyperlipidemia -continue statin Hypertension -VSS, continue to monitor -continue oral antihypertensives Hypothyroidism -has known hx of hypothyroidism -TSH quite elevated (36.6) -has not been taking medications for some time due to running out -on levothyroxine 150 mcg daily, will need dose adjustment if when TFTs repeated in 4-6 weeks with compliance, TSH remains high Obesity Subdural hygroma -has known hx of subdural hygroma that has been stable per imaging since 2017; details of how it occurred are unknown -no evidence of ventricle enlargement; noted diffuse cerebral atrophy -fall precautions -initially unclear what baseline mental status is; question of some degree of neurocognitive deficits though seems to be alert and oriented x 3, speech clear and coherent Surgical History Hx of CABG Social History Smoking and tobacco status: never smoked Physical Exam Const: COMMON NORMALS: no acute distress GENERAL APPEARANCE: cooperative and comfortable ORIENTATION/CONSCIOUSNESS: Yes awake, Yes oriented to person, Yes oriented to place and Yes oriented to time HENMT: COMMON NORMALS: normocephalic, atraumatic and hearing grossly normal bilaterally HEAD & SCALP: normocephalic and atraumatic Neck/C-Spine: COMMON NORMALS: no JVD Resp: COMMON NORMALS: normal respiratory effort, No retractions, No use of accessory muscles and clear to auscultation bilaterally AUSCULTATION: clear to auscultation bilaterally Cardio: COMMON NORMALS: no JVD, regular rate, regular rhythm and No murmurs present (Cardio) RATE: regular rate RHYTHM: regular rhythm GI: COMMON NORMALS: Soft to palpation and No hepatosplenomegaly present AUSCULTATION: Yes normoactive bowel sounds PALPATION: Yes Soft to palpation, No Tenderness to palpation present (GI), No Guarding due to palpation present (GI) and Yes No hepatosplenomegaly present Extremity: COMMON NORMALS: normal to inspection, capillary refill normal, no clubbing, cyanosis or edema, no calf tenderness and no pedal edema Neuro: SENSORIUM/ORIENTATION: Yes oriented to person, Yes oriented to place a nd Yes oriented to time Skin: COMMON NORMALS: no rashes or lesions noted GENERAL SKIN EXAM: no rashes or lesions noted Course Vital Signs: Vital signs: Vital Signs Temperature 98.4 F 04/11/21 15:45 Pulse Rate 88 04/11/21 15:45 Respiratory Rate 16 04/11/21 15:45 Blood Pressure 164/96 04/11/21 15:45 Pulse Oximetry 100 04/11/21 15:45 MDM - Abdominal Pain MDM Narrative: Medical decision making narrative: Labs reviewed. Imaging re viewed with as well. Discussed with the patient is hypokalemia is improved recheck was normal lactic acid was negative no acute findings on the CT. Regarding discharge him home clear liquid diet for next 24 to 48 hours return if has problems start on potassium supplement Zofran. Follow-up with his primary care doctor next week. Lab Data: Labs: Lab Results 04/11/21 04/11/21 04/11/21 09:43 09:43 09:43 WBC 10.5 10^3/uL H 10 ^3/uL (4.0-10.0) RBC 4.06 10^6/uL L 10 ^6/uL (4.1-5.3) Hgb 12.2 g/dL g/dL (11.7-16.6) Hct 36.4 % L % (42.0-52.0) MCV 89.7 fl fl (80-94) MCH 30.0 pg pg (28.0-34.0) MCHC 33.5 g/dL g/dL (30.0-36.0) RDW 13.2 % % (12.1-15.1) Plt Count 284 10^3/cmm 10^3 /cmm (130-400) MPV 10.0 fL fL (7.4-10.4) Neut % (Auto) 67.7 % % Lymph % (Auto) 23.1 % % Winkler % (Auto) 5.8 % % Eos % (Auto) 2.3 % % Baso % (Auto) 0.8 % % Neut # (Auto) 7.14 10^3/uL 10^3 /uL (1.8-7.7) Lymph # (Auto) 2.4 10^3/uL 10^3/ uL (0.8-4.8) Winkler # (Auto) 0.6 10^3/uL 10^3/ uL (0.2-0.9) Eos # (Auto) 0.2 10^3/uL 10^3/ uL (0.0-0.8) Baso # (Auto) 0.1 10^3/uL 10^3/ uL (0.0-0.1) Nucleated RBC % (a uto) 0 % % Nucleated RBCs # 0.0 /100WBC /100W BC Sodium 132 mmol/L L mmol /L (136-145) Potassium 3.4 mmol/L L mmol /L (3.5-5.1) Chloride 92 mmol/L L mmol/ L (98-107) Carbon Dioxide 30 mmol/L H mmol/ L (22-29) Anion Gap 13.4 (5-19) BUN 9 mg/dL mg/dL (8-23) Creatinine 0.9 mg/dL mg/dL (0.7-1.2) GFR Calculation 84.7 mL/min L mL/ min (90-130) Glucose 148 mg/dL H mg/dL (65-115) Calculated Osmolal ity 275 mOsm/kg L mOs m/kg (285-295) Lactate 1.3 mmol/L mmol/L (0.5-2.2) Calcium 8.8 mg/dL mg/dL (8.5-10.5) Total Bilirubin 0.6 mg/dL mg/dL (0.15-1.2) AST 42 U/L H U/L (0-40) ALT 16 U/L U/L (0-41) Alkaline Phosphata se 166 IU/L H IU/L (40-130) Creatine Kinase 836 U/L H* U/L (39-308) Total Protein 7.9 g/dL g/dL (6.6-8.7) Albumin 4.1 g/dL g/dL (3.5-5.2) Globulin 3.8 g/dL g/dL (1.3-4.6) 04/11/21 13:50 WBC RBC Hgb Hct MCV MCH MCHC RDW Plt Count MPV Neut % (Auto) Lymph % (Auto) Winkler % (Auto) Eos % (Auto) Baso % (Auto) Neut # (Auto) Lymph # (Auto) Winkler # (Auto) Eos # (Auto) Baso # (Auto) Nucleated RBC % (a uto) Nucleated RBCs # Sodium Potassium 3.6 mmol/L mmol/L (3.5-5.1) Chloride Carbon Dioxide Anion Gap BUN Creatinine GFR Calculation Glucose Calculated Osmolal ity Lactate Calcium Total Bilirubin AST ALT Alkaline Phosphata se Creatine Kinase Total Protein Albumin Globulin Discharge Plan Discharge Patient Disposition: Home Clinical Impression: Abdominal pain, Hypokalemia, Enteritis Condition: Stable Prescriptions: New potassium chloride 20 mEq tablet,ER particles/crystals 20 meq PO BID Qty: 10 RF: 0 Zofran 4 mg tablet 4 mg PO Q6H PRN (Reason: nausea and vomiting) Qty: 20 RF: 0 No Action mupirocin 2 % ointment 1 applic TOPICAL TID 7 Days Qty: 15 RF: 0 sertraline 100 mg Tablet 100 mg PO BID 30 Days Qty: 60 RF: 0 clopidogrel [Plavix] 75 mg Tablet 75 mg PO DAILY 30 Days Qty: 30 RF: 0 metformin 1,000 mg Tablet 1,000 mg PO BID 30 Days Qty: 60 RF: 0 levothyroxine 175 mcg Tablet 175 mcg PO DAILY RF: 0 lisinopril 20 mg Tablet 20 mg PO BID RF: 0 hydrochlorothiazide 25 mg Tablet 25 mg PO DAILY RF: 0 atorvastatin 40 mg tablet 80 mg PO BEDTIME RF: 0 ropinirole 1 mg tablet 1 mg PO BEDTIME MDD see pharmacy comment RF: 0 levothyroxine 25 mcg Tablet 25 mcg PO DAILY RF: 0 Discharge Orders: Discharge ED (Routine); Ordered 04/11/21 Ordered By: Artie Campa Referrals: Matthew Ray NP [Primary Care Provider] - Patient Instructions: Abdominal Pain (ED), Opioid Safety Activity Restrictions/Additional Instructions: Follow-up with your primary care doctor on Tuesday for repeat kidney functions and CPK. Return to the ER if you have problems. Coding Level of Care Code ED Residential Housekeeper for Bruna Fwd Exam Comprehensive
[2021-04-11] MEDS: potassium chloride oral liq 20 mEq/15 mL UDC 40 MEQ PO (10:31)
[2021-04-11 10:56] VITALS: PULSE 87; RESP 16; O2SAT 98
--- NOTE | 2021-04-11 10:59 | PC.NURSE ---
pt denies abd pain at this time. th
[2021-04-11] MEDS: iohexol 300 mg/mL 100 mL Btl IV (11:30)
[2021-04-11 13:58] LABS: Lactate (Lactic Acid level) 1.3 mmol/L (0.5-2.2)
[2021-04-11 14:50] VITALS: BP 148/80; PULSE 79; RESP 16; TEMP 37.1; O2SAT 97
[2021-04-11 14:56] LABS: Potassium 3.6 mmol/L (3.5-5.1)
[2021-04-11 15:38] VITALS: BP 166/84; PULSE 90; RESP 16; O2SAT 99
[2021-04-11 15:45] VITALS: BP 164/96; PULSE 88; RESP 16; TEMP 36.9; O2SAT 100
== END 2021-04-11 15:45 | disposition home or self-care (01) ==
PROVIDERS: Emergency Provider Family Medicine; PCP Nurse Practitioner Family
DX: K52.9 Noninfective gastroenteritis and colitis, unspecified (principal); E87.6 Hypokalemia; Z79.84 Long term (current) use of oral hypoglycemic drugs; J44.9 Chronic obstructive pulmonary disease, unspecified; E78.5 Hyperlipidemia, unspecified; I10 Essential (primary) hypertension; Z95.1 Presence of aortocoronary bypass graft
CPT/HCPCS: 74177; 80053; 82550; 83605; 84132; 85025; 93005; 96360; 99284; J7030; Q9967

== ENCOUNTER → 2021-06-27 10:29 | Outpatient (BNVA) | payer MEDICARE, SELFPAY | PROVIDERS: PCP Nurse Practitioner Family; Visit Provider Registered Nurse Neonatal Intensive Care | DX: Z20.822 Contact with and (suspected) exposure to COVID-19 (principal) | CPT/HCPCS: 87635 ==

== ENCOUNTER 2023-01-23 10:50 | Emergency (ER) | payer MEDICARE, SELFPAY ==
[2023-01-23 11:04] VITALS: BP 162/117; PULSE 112; RESP 18; TEMP 36.7; O2SAT 96; BMI 34.9
--- NOTE | 2023-01-23 11:59 | ED_ITS ---
HPI - Skin/Abscess/Foreign Bdy General: Chief complaint: Skin/Abscess/Foreign Body Stated complaint: Bite on side red and swelling under Left arm Time Seen by Provider: 01/23/23 11:49 History of Present Illness: This patient is a 67 year old presenting with an insect sting on the left flank. He thinks it was a bee sting or a spider bite and it happened yesterday. It was painful at the time and is still painful. He says that his told him he needed to come and get it looked at and she thought he might have a fever. He is worried about infection as he has had a CABG in the past. He feels fine otherwise - no chest pain, no SOB, no rash elsewhere. He has had 5 brown rec luse spider bites in the past and says that they were not painful. [facility] PFSH: Medical History (Updated 01/23/23 @ 11:59 by Margot Kerns MD) COPD (chronic obstructive pulmonary disease) -not oxygen dependent at baseline -no evidence of acute exacerbation currently -continue to monitor respiratory status, supplemental oxygen as needed Hyperlipidemia -continue statin Hypertension -VSS, continue to monitor -continue oral antihypertensives Hypothyroidism -has known hx of hypothyroidism -TSH quite elevated (36.6) -has not been taking medications for some time due to running out -on levothyroxine 150 mcg daily, will need dose adjustment if when TFTs repea fracisco in 4-6 weeks with compliance, TSH remains high Obesity Subdural hygroma -has known hx of subdural hygroma that has been stable per imaging since 2017; details of how it occurred are unknown -no evidence of ventricle enlargement; noted diffuse cerebral atrophy -fall precautions -initially unclear what baseline mental status is; question of some degree of neurocognitive deficits though seems to be alert and oriented x 3, speech clear and coherent Surgical History Hx of CABG Social History Smoking and tobacco status: never smoked Physical Exam Const: COMMON NORMALS: no acute distress, patient oriented x3, no limitations and alert GENERAL APPEARANCE: cooperative and comfortable HENMT: HEAD & SCALP: normal to inspection FACE & SINUS: normal facial exam Eye: GENERAL EYE: appearance normal, both eyes and all related structures Neck/C-Spine: COMMON NORMALS: supple, no meningeal signs and no JVD Resp: COMMON NORMALS: normal respiratory effort, No use of accessory muscles and clear to auscultation bilaterally AUSCULTATION: clear to auscultation bilaterally Cardio: COMMON NORMALS: no JVD, regular rate, regular rhythm and No murmurs present (Cardio) RATE: regular rate RHYTHM: regular rhythm Back/Pelvis: COMMON NORMALS: thoracic and lumbar spine normal to inspection Extremity: COMMON NORMALS: normal to inspection Neuro: COMMON NORMALS: patient oriented x3 and moves all extremities SENSORIUM/ORIENTATION: Yes alert MENINGEAL SIGNS: Yes no meningeal signs Psych: COMMON NORMALS: mental status grossly normal, cooperative and normal affect Skin: NARRATIVE SKIN EXAM: small area of induration left lateral ribs - minimal redness. No fluctuance. Course Vital Signs: Vital signs: Vital Signs Temperature 98.1 F 01/23/23 11:04 Pulse Rate 112 H 01/23/23 11:04 Respiratory Rate 18 01/23/23 11:04 Blood Pressure 162/117 01/23/23 11:04 Pulse Oximetry 96 01/23/23 11:04 Oxygen Delivery Me thod Room Air 01/23/23 11:04 MDM - Skin/Abscess/Foreign Bdy Medicial Decision Making Insect bite vs early abscess. No drainage or fluctuance. May be local reaction to the bite - or could be early infection. Antibiotics, OTC benadryl. Discharge Plan Discharge Patient Disposition: Home Clinical Impression: Cellulitis, Insect bites Condition: Stable Prescriptions: New doxycycline hyclate 100 mg capsule 100 mg PO Q12H 14 Days Qty: 28 0RF Discontinued doxycycline hyclate 100 mg capsule 100 mg PO BID 10 Days Qty: 20 0RF No Action mupirocin 2 % ointment 1 applic topical TID Qty: 15 0RF sertraline 100 mg Tablet 100 mg PO BID 30 Days Qty: 60 0RF clopidogrel [Plavix] 75 mg Tablet 75 mg PO DAILY 30 Days Qty: 30 0RF metformin 1,000 mg Tablet 1,000 mg PO BID 30 Days Qty: 60 0RF levothyroxine 175 mcg Tablet 175 mcg PO DAILY Rx Instructions: take with 25 mcg once daily lisinopril 20 mg Tablet 20 mg PO BID hydrochlorothiazide 25 mg Tablet 25 mg PO DAILY atorvastatin 40 mg tablet 80 mg PO BEDTIME ropinirole 1 mg tablet 1 mg PO BEDTIME MDD see pharmacy comment levothyroxine 25 mcg Tablet 25 mcg PO DAILY Rx Instructions: take with 175 mcg daily potassium chloride 20 mEq tablet,ER particles/crystals 20 meq PO BID Qty: 10 0RF Zofran 4 mg tablet 4 mg PO Q6H PRN (Reason: nausea and vomiting) Qty: 20 0RF Discharge Orders: Discharge ED (Routine); Ordered 01/23/23 Ordered By: Margot Kerns Referrals: Matthew Ray, UI ARCHITECT [Primary Care Provider] - Patient Instructions: Opioid Safety, Pain Management Activity Restrictions/Additional Instructions: You may take benadryl 25 mg every 6 hours if needed for itching. Take the doxycycline as prescribed today. Take all the pills until they are gone. Follow up with Matthew Ray in about a week for a recheck. Return to the ED if new or worse symptoms including fever. Coding Level of Care Code ED Software Support Specialist for Bruna Flores
[2023-01-23] MEDS: doxycycline 100 mg Tablet PO (12:06)
== END 2023-01-23 12:14 | disposition home or self-care (01) ==
PROVIDERS: Emergency Provider Emergency Medicine; PCP Nurse Practitioner Family
DX: S30.861A Insect bite (nonvenomous) of abdominal wall, initial encounter (principal); L03.319 Cellulitis of trunk, unspecified; J44.9 Chronic obstructive pulmonary disease, unspecified; I10 Essential (primary) hypertension; E78.5 Hyperlipidemia, unspecified; E03.9 Hypothyroidism, unspecified; E66.9 Obesity, unspecified; Z68.35 Body mass index [BMI] 35.0-35.9, adult; Z95.1 Presence of aortocoronary bypass graft; W57.XXXA Bitten or stung by nonvenomous insect and other nonvenomous arthropods, initial encounter
CPT/HCPCS: 99283

== ENCOUNTER 2023-08-30 11:43 | Outpatient (CLI) | payer MEDICARE, SELFPAY ==
--- NOTE | 2023-08-30 11:48 | USCV_ITS ---
Mandy Davis Age: 68 Gender: M : 1955 Exam Date: 08/30/2023 12:09 Ordering Phys: Roseanne Miranda DO Technologist: BRAIN [place]am [place] [facility] [place]: A FIB BP: 158 / 90 HR: 0 Rhythm: Atrial fibrillation Technical Quality: Adequate MEASUREMENTS (Male / Female) Normal Values 2D ECHO LV Diastolic Diameter PLAX 5.6 cm 4.2 - 5.9 / 3.9 - 5.3 cm IVS Diastolic Thickness 1.1 cm 0.6 - 1.0 / 0.6 - 0.9 cm IVS Systolic Thickness 1.5 cm LVPW Diastolic Thickness 1.5 cm 0.6 - 1.0 / 0.6 - 0.9 cm LVPW Systolic Thickness 1.7 cm LVOT Diameter 2.0 cm LV Ejection Fraction 2D Teich 2.8 % Aorta at Sinotubular Diameter 2.6 cm IVC Diameter 1.0 cm DOPPLER AV Peak Velocity 96.0 cm/s LVOT Peak Velocity 77.0 cm/s AV Area Cont Eq vti 4.1 cm squared AV Area Cont Eq pk 2.6 cm squared TR Peak Velocity 177.0 cm/s TR Peak Gradient 12.5 mmHg Right Atrial Pressure 3.0 mmHg Pulmonary Artery Systolic Pressu 15.5 mmHg PV Peak Velocity 79.0 cm/s FINDINGS Left Ventricle Left ventricle is normal size. LV systolic function is mildly reduced with EF of 40-45%. Mild global hypokinesis seen. Right Ventricle RV appears hypokinetic. Right Atrium Normal in size Left Atrium Severely dilated Mitral Valve Mild mitral regurgitation. Aortic Valve Aortic valve is thickened. Mild aortic regurgitation. No significant stenosis. Tricuspid Valve Mild tricuspid regurgitation. Insufficient TR jet to calculate RVSP Pulmonic Valve Not well visualized Pericardium Normal Aorta Normal in size IVC Appears to be normal CONCLUSIONS LV systolic function is mildly reduced with EF of 40-45% RV appears hypokinetic Severely dilated left atrium Mild mitral regurgitation Mild aortic regurgitation Mild tricuspid regurgitation Accurate comparison from prior echocardiogram is not possible because of poor ultrasonic windows Ryan Jeong MD (Electronically Signed) Final Date: 10 September 2023 10:05 S
== END 2023-08-30 11:44 | disposition home or self-care (01) ==
LOC: RAD 11:44
PROVIDERS: PCP Nurse Practitioner Family; Visit Provider Family Medicine
DX: I48.91 Unspecified atrial fibrillation (principal); I08.3 Combined rheumatic disorders of mitral, aortic and tricuspid valves
CPT/HCPCS: 93306

== ENCOUNTER → 2023-09-29 14:47 | Outpatient (BNVA) | payer MEDICARE, SELFPAY | PROVIDERS: PCP Family Medicine; Referring Provider Family Medicine; Visit Provider Internal Medicine | DX: I48.91 Unspecified atrial fibrillation (principal); I49.3 Ventricular premature depolarization | CPT/HCPCS: 93242 ==

== ENCOUNTER 2024-01-04 14:40 | Emergency (ER) | payer MEDICARE, SELFPAY ==
[2024-01-04 14:46] VITALS: BP 210/84; PULSE 108; RESP 16; TEMP 36.6; O2SAT 97
--- NOTE | 2024-01-04 16:07 | W.ED.FALL ---
HPI - Fall General: Chief Complaint: Fall Stated Complaint: right arm pain Time Seen by Provider: 01/04/24 16:07 Source: patient Mode of arrival: wheelchair Limitations: no limitations History of Present Illness: Patient is a nice 68-year-old male presents to ED today along with his family for evaluation of a trip and fall. Patient states just prior to arrival he was walking in his home when he accidentally tripped over my own foot . And ran into a door jam before falling to the floor. He states he has a small abrasion to his right anterior knee. He does believe he struck his head. He is on Plavix. His main complaint is his right elbow that is severely tender and swollen. He has a few minor abrasions other places. Last tetanus is unknown. He has no neck or back pain. MD complaint: fall Onset (ago): hour(s) Fall from: standing Fall witnessed: yes, by family Place fall occurred: home Loss of consciousness: None Prolonged down time: no Symptoms prior to fall: none Context: tripped/slipped Location of injury: head Location of injury - extremities: Right: elbow and knee Severity: severe (in elbow) Associated symptoms-after fall: Reports headache(s); Denies abdominal pain, chest pain, hematuria, lightheadedness or neck pain Review of Systems Eyes: Denies: change in vision, blurry vision, photophobia, eye discharge, floaters or seeing flashes ENMT: Denies: throat pain, odynophagia, ear or mastoid pain, ear discharge, nasal discharge, epistaxis or sinus pain Card: Denies: chest pain, palpitations, lightheadedness, syncope or pre-syncope Resp: Denies: dyspnea or pain on inspiration GI: Denies: abdominal pain : Denies: flank pain or hematuria Musc: Reports: joint pain (R knee, R elbow), joint swelling (R elbow) and limited range of motion (R elbow); Denies: neck pain, back pain or extremity pain Skin/Breast: Reports: other (minor scattered abrasions) Neuro: Reports: headache(s); Denies: numbness in extremities, weakness in extremities, sensory changes or dizziness [facility] [place] ED PFSH: Medical History (Updated 01/04/24 @ 19:54 by FLORECITA cMdaniel) Subdural hygroma -has known hx of subdural hygroma that has been stable per imaging since 2017; details of how it occurred are unknown -no evidence of ventricle enlargement; noted diffuse cerebral atrophy -fall precautions -initially unclear what baseline mental status is; question of some degree of neurocognitive deficits though seems to be alert and oriented x 3, speech clear and coherent Hypothyroidism -has known hx of hypothyroidism -TSH quite elevated (36.6) -has not been taking medications for some time due to running out -on levothyroxine 150 mcg daily, will need dose adjustment if when TFTs repeated in 4-6 weeks with compliance, TSH remains high COPD (chronic obstructive pulmonary disease) -not oxygen dependent at baseline -no evidence of acute exacerbation currently -continue to monitor respiratory status, supplemental oxygen as needed Hyperlipidemia -continue statin Obesity Hypertension -VSS, continue to monitor -continue oral antihypertensives Surgical History Hx of CABG Social History Smoking and tobacco/nicotine status: never used tobacco/nicotine Physical Exam Const: COMMON NORMALS: no acute distress, average body habitus, patient oriented x3, no limitations, healthy appearing, alert and well nourished GENERAL APPEARANCE: cooperative ORIENTATION/CONSCIOUSNESS: Yes awake, Yes oriented to person, Yes oriented to place and Yes oriented to time HENMT: COMMON NORMALS: normocephalic, atraumatic and TM's normal bilaterally HEAD & SCALP: normal to inspection, normocephalic and atraumatic; no Green's sign, no hematoma and no raccoon eyes FACE & SINUS: normal facial exam TYMPANIC MEMBRANE: TM's normal bilaterally MOUTH: other (no intraoral injuries noted) Eye: COMMON NORMALS: Equal, round and reactive pupils present and EOMs intact bilaterally GENERAL EYE: appearance normal, both eyes and all related structures and normal light reflex PUPIL: Yes Equal, round and reactive pupils present DIRECT OPHTHALMOSCOPY: Yes normal light reflex Neck/C-Spine: COMMON NORMALS: full ROM GENERAL: Yes normal visual inspection CERVICAL SPINE: Yes cervical ROM normal, No pain with cervical ROM, No Cervical spine tenderness, No step off deformity and No Paracervical muscle tenderness Chest: COMMONS NORMALS: normal inspection of the chest and normal palpation of entire chest wall Resp: COMMON NORMALS: normal respiratory effort and clear to auscultation bilaterally AUSCULTATION: clear to auscultation bilaterally Cardio: COMMON NORMALS: regular rate and regular rhythm RATE: regular rate RHYTHM: regular rhythm GI: COMMON NORMALS: Normal to inspection, nondistended, normoactive bowel sounds present, Soft to palpation, non-tender, No hepatosplenomegaly present and no masses INSPECTION: Yes normal to inspection and No abdominal wall ecchymosis AUSCULTATION: Yes normoactive bowel sounds PALPATION: Yes Soft to palpation and Yes No hepatosplenomegaly present Back/Pelvis: COMMON NORMALS: thoracic and lumbar spine normal to inspection, no thoracic nor lumbar tenderness and thoraco-lumbar ROM normal Extremity: COMMON NORMALS: full ROM and capillary refill normal GENERAL: Yes normal exam except as noted RIGHT UPPER EXTREMITY: Yes elbow joint (significant pain/edema to R elbow) Right elbow: Yes ROM (significant limitation due to pain) and Yes neurovascular exam (normal) RIGHT LOWER EXTREMITY: Yes knee joint (minor anterior knee abrasion) Right knee: Yes ROM (fairly good ROM) and Yes neurovascular exam (normal) Neuro: NAT COMA SCALE: document GCS findings Nat coma scale eye opening: Spontaneous Nat coma scale verbal response: Orientated [place] coma scale motor response: Obey commands [place] coma scale total score: 15 COMMON NORMALS: patient oriented x3, CN's II-XII intact bilaterally, moves all extremities, no focal motor deficits, no sensory deficits noted and gait normal SENSORIUM/ORIENTATION: Yes alert, Yes oriented to person, Yes oriented to place and Yes oriented to time SPEECH: speech normal GAIT: Yes Normal gait present Skin: TRAUMA: abrasion (minor scattered abrasions) Course Consultations: Consultation #1: Dr. Copeland-recommends splint and refer to [facility] Consultation #2: Dr. Jacobson[facility]-stated he will speak to trauma ortho for follow up vs transfer for surgery Vital Signs: Vital signs: Vital Signs Temperature 98 F 01/04/24 14:46 Pulse Rate 95 01/04/24 16:53 Respiratory Rate 16 01/04/24 16:53 Blood Pressure 154/79 01/04/24 20:16 Pulse Oximetry 97 01/04/24 16:53 Oxygen Delivery Me thod Room Air 01/04/24 16:53 MDM - Fall Medical Decision Making Patient is a nice 68-year-old male here following a trip and fall. His main complaint is pain around his right elbow. He does state he struck his head. No LOC. He complains of some minor knee pain. His knee XR is unremarkable. His head CT stating he has a chronic subdural hematoma although on his history this is a chronic subdural hygroma. Either way it is unchanged from CT scan years ago. He has no acute changes in his mental status. I spoke to [facility] orthopedics who was able to contact trauma ortho and would like him transferred at this time for evaluation/surgery of his right supracondylar/transcondylar elbow fracture. Patient will be transferred POV. Medical Records I reviewed the patient's medical records. Lab Data Radiology Impressions Elbow X-Ray 01/04/24 16:10 IMPRESSION: Mildly displaced fracture through the distal humerus. Head CT 01/04/24 16:10 IMPRESSION: Findings consistent with a chronic subdural hematoma along the right cerebral hemisphere and midline falx. No acute findings. Knee X-Ray 01/04/24 16:10 IMPRESSION: No acute findings. All radiology interpretation(s) finalized by discharge Discharge Plan Discharge Patient Disposition: Xfer Short-Term Hosp Clinical Impression: Fall on same level from tripping Closed fracture of distal end of right humerus Qualifiers: Encounter type: initial encounter Fracture morphology: other fracture Fracture alignment: displaced Qualified Code(s): S42.491A - Other displaced fracture of lower end of right humerus, initial encounter for closed fracture Condition: Stable Referrals: Roseanne Miranda DO [Primary Care Provider] - Coding Level of Care Code ED Varnish Remover for Bruna Flores
--- NOTE | 2024-01-04 16:10 | CTR_ITS ---
PROCEDURE INFORMATION: Exam: CT Head Without Contrast Exam date and time: 01/04/2024 4:59 PM Age: 68 years old Clinical indication: Injury or trauma; Blunt trauma (contusions or hematomas); Patient HX: Fall today around 1300 no loc. Hit right side of head to floor. PT on thinners TECHNIQUE: Imaging protocol: Computed tomography of the head without contrast. Radiation optimization: All CT scans at this facility use at least one of these dose optimization techniques: automated exposure control; mA and/or kV adjustment per patient size (includes targeted exams where dose is matched to clinical indication); or iterative reconstruction. COMPARISON: CT head wo con* [id number] 09/09/2019 7:05 PM RADIATION DOSE METRICS: Total DLP (mGy-cm): 1063.54 FINDINGS: Brain: Asymmetric prominence of the right extra-axial space with CSF density measuring 1.2 cm in thickness. This is also present along the midline falx measuring up to 1.6 cm in thickness. No acute hemorrhage. No edema. Moderate diffuse cerebral atrophy and sequela of chronic small vessel ischemic disease. 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 Cerebral ventricles: No ventriculomegaly. Paranasal sinuses: Visualized sinuses are unremarkable. No fluid levels. Mastoid air cells: Visualized mastoid air cells are well aerated. Bones: Unremarkable. No acute fracture. Soft tissues: Unremarkable. CT/CT head wo con* [id number] IMPRESSION: Findings consistent with a chronic subdural hematoma along the right cerebral hemisphere and midline falx. No acute findings.
--- NOTE | 2024-01-04 16:10 | XRR_ITS ---
PROCEDURE INFORMATION: Exam: XR Right Elbow Exam date and time: 01/04/2024 4:40 PM Age: 68 years old Clinical indication: Injury or trauma; Fall; Blunt trauma (contusions or hematomas); Elbow; Right; Additional info: Trauma/fall TECHNIQUE: Imaging protocol: Radiologic exam of the right elbow. Views: 3 or more views. COMPARISON: No relevant prior studies available. FINDINGS: Bones/joints: Mildly displaced horizontal fracture through the distal humerus. Soft tissues: Soft tissue swelling around the elbow. XR/XR elbow RT min 3V* [id number] IMPRESSION: Mildly displaced fracture through the distal humerus.
--- NOTE | 2024-01-04 16:10 | XRR_ITS ---
PROCEDURE INFORMATION: Exam: XR Right Knee Exam date and time: 01/04/2024 4:44 PM Age: 68 years old Clinical indication: Injury or trauma; Fall; Blunt trauma; Knee; Right TECHNIQUE: Imaging protocol: Radiologic exam of the right knee. Views: 3 views. COMPARISON: No relevant prior studies available. FINDINGS: Bones/joints: Normal. Soft tissues: Normal. XR/XR knee RT 3V* [id number] IMPRESSION: No acute findings.
[2024-01-04] MEDS: tetanus-dipt-pertussis 0.5 mL SDV IM (16:19)
[2024-01-04] MEDS: morphine 4 mg/mL SDV 1 mL IM (16:23)
[2024-01-04 16:53] VITALS: BP 195/97; PULSE 95; RESP 16; O2SAT 97
[2024-01-04] MEDS: HYDROmorphone 1 mg/mL INJ 1 mL IM (17:08)
[2024-01-04 20:16] VITALS: BP 154/79
[2024-01-04] MEDS: fentaNYL 50 mcg/mL INJ 2mL 75 MCG IVP (21:39)
[2024-01-04 21:50] VITALS: BP 152/71; PULSE 86; RESP 18; O2SAT 97
== END 2024-01-04 21:52 | disposition short-term general hospital (02) ==
PROVIDERS: Emergency Provider Physician Assistant; PCP Family Medicine
DX: S42.491A Other displaced fracture of lower end of right humerus, initial encounter for closed fracture (principal); J44.9 Chronic obstructive pulmonary disease, unspecified; E78.5 Hyperlipidemia, unspecified; I10 Essential (primary) hypertension; Z95.1 Presence of aortocoronary bypass graft; S80.211A Abrasion, right knee, initial encounter; W01.198A Fall on same level from slipping, tripping and stumbling with subsequent striking against other object, initial encounter; Z23 Encounter for immunization
CPT/HCPCS: 29105; 70450; 73080; 73562; 90471; 90715; 96372; 96374; 99285; J1170; J2270; J3010

== ENCOUNTER 2024-06-02 02:28 | Emergency (ER) | payer MEDICARE, SELFPAY ==
[2024-06-02 02:30] VITALS: BP 151/84; PULSE 64; RESP 16; TEMP 36.8; O2SAT 100; BMI 27.3
--- NOTE | 2024-06-02 02:41 | XRR_ITS ---
PROCEDURE INFORMATION: Exam: XR Pelvis Exam date and time: 06/02/2024 2:44 AM Age: 69 years old Clinical indication: Pain and injury or trauma; Blunt trauma (contusions or hematomas); Hip pain; Patient HX: C/O worsening left hip and thigh pain since a fall two days ago. ; Additional info: Fall L hip pain TECHNIQUE: Imaging protocol: Radiologic exam of the pelvis. Views: 1 or 2 view. COMPARISON: CT abdomen pelvis w con* [id number] 04/11/2021 11:29 AM FINDINGS: Bones/joints: No acute fracture or dislocation. Mild degenerative changes of the bilateral hips, [id number]. Soft tissues: Unremarkable. XR/XR pelvis 1-2V* [id number] IMPRESSION: No acute fracture or dislocation.
--- NOTE | 2024-06-02 02:41 | XRR_ITS ---
PROCEDURE INFORMATION: Exam: XR Left Femur Exam date and time: 06/02/2024 2:44 AM Age: 69 years old Clinical indication: Pain and injury or trauma; Blunt trauma; Hip and thigh or upper leg; Patient HX: C/O worsening left hip and thigh pain since a fall two days ago. ; Additional info: Fall L thigh pain TECHNIQUE: Imaging protocol: Radiologic exam of the left femur. Views: 2 views. COMPARISON: CR XR pelvis 1-2V* [id number] 06/02/2024 2:44 AM FINDINGS: Bones/joints: Unremarkable. No acute fracture. Soft tissues: Unremarkable. XR/XR femur LT min 2V* [id number] IMPRESSION: No acute findings.
[2024-06-02 02:43] VITALS: BP 151/84; PULSE 78; RESP 16; O2SAT 100
--- NOTE | 2024-06-02 02:53 | ED_ITS ---
HPI - Extremity Problem General: Chief complaint: Extremity Injury, Lower Stated complaint: HIP PAIN Time Seen by Provider: 06/02/24 02:33 History of Present Illness: 69-year-old male patient who fell in the [facility] 2 days ago. He complains of left mainly lateral hip pain, and some distal thigh pain. He is able to bear some weight, but with pain. No fever. No redness. Related Data Home Medications Medication Instructions Recorded Confirmed atorvastatin 40 mg tablet 80 mg PO BEDTIME 03/17/20 09/10/23 hydrochlorothiazide 25 mg tablet 25 mg PO DAILY 03/17/20 09/10/23 lisinopril 20 mg tablet 20 mg PO BID 03/17/20 09/10/23 ropinirole 1 mg tablet 1 mg PO BEDTIME 04/11/21 09/10/23 cholecalciferol (vitamin D3) 25 PO 08/21/23 09/10/23 mcg (1,000 unit) capsule (Vitamin D3) levothyroxine 200 mcg tablet mcg PO 08/21/23 09/10/23 Previous Rx's Medication Instructions Recorded clopidogrel 75 mg tablet (Plavix) 75 mg PO DAILY 30 days #30 tabs 09/11/19 sertraline 100 mg tablet 100 mg PO BID 30 days #60 tabs 09/11/19 ondansetron HCl 4 mg tablet 4 mg PO Q6H PRN nausea and 04/11/21 (Zofran) vomiting #20 tabs potassium chloride 20 mEq 20 meq PO BID #10 tabs 04/11/21 tablet,extended release(part/cryst) mupirocin 2 % topical ointment 1 applic topical TID #15 grams 01/03/23 doxycycline hyclate 100 mg tablet 100 mg PO BID 7 days #14 tabs 08/21/23 mupirocin 2 % topical ointment 1 applic topical BID #22 grams 08/21/23 cefdinir 300 mg capsule 300 mg PO Q12H 10 days #20 caps 09/10/23 mupirocin 2 % topical ointment 1 applic topical BID #22 grams 09/10/23 Allergies Allergy/AdvReac Type Severity Reaction Status Date / Time egg Allergy Unknown Unknown Verified 01/04/24 14:54 Sulfa (Sulfonamide Allergy Unknown Verified 01/04/24 14:54 Antibiotics) [facility] ED PFSH: Medical History (Updated 06/02/24 @ 03:35 by González Pittman DO) Subdural hygroma -has known hx of subdural hygroma that has been stable per imaging since 2017; details of how it occurred are unknown -no evidence of ventricle enlargement; noted diffuse cerebral atrophy -fall precautions -initially unclear what baseline mental status is; question of some degree of neurocognitive deficits though seems to be alert and oriented x 3, speech clear and coherent Hypothyroidism -has known hx of hypothyroidism -TSH quite elevated (36.6) -has not been taking medications for some time due to running out -on levothyroxine 150 mcg daily, will need dose adjustment if when TFTs repeated in 4-6 weeks with compliance, TSH remains high COPD (chronic obstructive pulmonary disease) -not oxygen dependent at baseline -no evidence of acute exacerbation currently -continue to monitor respiratory status, supplemental oxygen as needed Hyperlipidemia -continue statin Obesity Hypertension -VSS, continue to monitor -continue oral antihypertensives Surgical History Hx of CABG Social History Smoking and tobacco/nicotine status: never used tobacco/nicotine Physical Exam Const: COMMON NORMALS: no acute distress GENERAL APPEARANCE: cooperative and frail appearing (mildly) HENMT: COMMON NORMALS: normocephalic, atraumatic and Normal external nose present HEAD & SCALP: normocephalic and atraumatic FACE & SINUS: normal facial exam NOSE: Normal external nose present Eye: COMMON NORMALS: Equal, round and reactive pupils present and EOMs intact bilaterally PUPIL: Yes Equal, round and reactive pupils present Neck/C-Spine: COMMON NORMALS: full ROM and supple GENERAL: Yes trachea midline CERVICAL SPINE: Yes cervical ROM normal Chest: COMMONS NORMALS: normal inspection of the chest CHEST: Yes Symmetrical chest wall rise Resp: COMMON NORMALS: normal respiratory effort Cardio: COMMON NORMALS: regular rate and regular rhythm RATE: regular rate RHYTHM: regular rhythm : COMMON NORMALS: Yes no CVA tenderness BLADDER/KIDNEY EXAM: Yes no CVA tenderness Back/Pelvis: COMMON NORMALS: no CVA tenderness Extremity: NARRATIVE EXTREMITY EXAM: Examination left hip reveals lateral left hip tenderness. There is no anterior tenderness. There is no sacral tenderness. No significant deformity. No significant ecchymosis. Course Vital Signs: Vital signs: Vital Signs Temperature 98.2 F 06/02/24 02:30 Pulse Rate 60 06/02/24 03:47 Respiratory Rate 16 06/02/24 03:47 Blood Pressure 149/79 06/02/24 03:47 Pulse Oximetry 100 06/02/24 03:47 Oxygen Delivery Me thod Room Air 06/02/24 03:47 MDM - Extremity (Nontraumatic) Medical Decision Making X-ray of the pelvis and femur do not reveal a definite fracture. Will allow back. Lab Data Radiology Impressions Femur X-Ray 06/02/24 02:41 IMPRESSION: No acute findings. Pelvis X-Ray 06/02/24 02:41 IMPRESSION: No acute fracture or dislocation. All radiology interpretation(s) finalized by discharge Discharge Plan Discharge Patient Disposition: Home Clinical Impression: Repeated falls, Contusion of hip, left Condition: Stable Prescriptions: No Action mupirocin 2 % ointment 1 applic topical TID Qty: 15 0RF levothyroxine 200 mcg tablet PO cholecalciferol (vitamin D3) [Vitamin D3] 25 mcg (1,000 unit) capsule PO mupirocin 2 % ointment 1 applic topical BID Qty: 22 0RF doxycycline hyclate 100 mg tablet 100 mg PO BID 7 Days Qty: 14 0RF cefdinir 300 mg capsule 300 mg PO Q12H 10 Days Qty: 20 0RF mupirocin 2 % ointment 1 applic topical BID Qty: 22 0RF Rx Instructions: apply to left forearm sertraline 100 mg Tablet 100 mg PO BID 30 Days Qty: 60 0RF clopidogrel [Plavix] 75 mg Tablet 75 mg PO DAILY 30 Days Qty: 30 0RF lisinopril 20 mg Tablet 20 mg PO BID hydrochlorothiazide 25 mg Tablet 25 mg PO DAILY atorvastatin 40 mg tablet 80 mg PO BEDTIME ropinirole 1 mg tablet 1 mg PO BEDTIME MDD see pharmacy comment potassium chloride 20 mEq tablet,ER particles/crystals 20 meq PO BID Qty: 10 0RF Zofran 4 mg tablet 4 mg PO Q6H PRN (Reason: nausea and vomiting) Qty: 20 0RF Discharge Orders: Discharge ED (Routine); Ordered 06/02/24 Ordered By: González Pittman Referrals: Roseanne Miranda DO [Primary Care Provider] - 1-3 days Patient Instructions: Hip Contusion (ED), Opioid Safety, Pain Management Activity Restrictions/Additional Instructions: Return for worsening pain, weakness, fever, other concerning symptoms. Coding Level of Care Code ED Internal Audit Manager for Bruna Flores
[2024-06-02 03:47] VITALS: BP 149/79; PULSE 60; RESP 16; O2SAT 100
[2024-06-02 05:43] VITALS: BP 134/90; PULSE 64; RESP 15; O2SAT 100
== END 2024-06-02 05:57 | disposition home or self-care (01) ==
PROVIDERS: Emergency Provider Emergency Medicine; PCP Family Medicine
DX: S70.02XA Contusion of left hip, initial encounter (principal); W19.XXXA Unspecified fall, initial encounter; R29.6 Repeated falls; Z79.02 Long term (current) use of antithrombotics/antiplatelets; J44.9 Chronic obstructive pulmonary disease, unspecified; E78.5 Hyperlipidemia, unspecified; I10 Essential (primary) hypertension
CPT/HCPCS: 72170; 73552; 99284

== ENCOUNTER 2025-02-20 09:36 | Outpatient (CLI) | payer MEDICARE, SELFPAY ==
--- NOTE | 2025-02-20 12:34 | FL_ITS ---
FL barium swallow modifd [id number] REASON FOR EXAM: Other dysphagia FLUOROSCOPY TIME: 3min [id number] # OF SPOT FILMS: None TECHNIQUE: Examination was supervised by the speech therapy department. Patient was examined in the sitting upright lateral projection. The swallowing of barium of varying consistencies was monitored fluoroscopically and video recorded. FINDINGS: There is no aspiration. Intermittent penetration of thin contrast into the laryngeal vestibule. Not as frequent with chin tucking. There was no impedance of the passage of the barium tablet through the esophagus. IMPRESSION: A detailed report of the swallowing will be rendered by the speech therapy department. No aspiration. Laryngeal vestibule penetration. No impedance to the transit of the barium tablet through the esophagus. MTDD
== END 2025-02-20 09:37 | disposition home or self-care (01) ==
LOC: RAD 09:38
PROVIDERS: PCP Family Medicine; Visit Provider Internal Medicine
DX: R13.10 Dysphagia, unspecified (principal)
CPT/HCPCS: 74230; 92611